=== PATIENT | male | born 1955 | race Caucasian/White ===

== ENCOUNTER → 2017-08-25 | Day surgery (SDC) | payer OTHER ==
[~2017-08-25] VITALS: Ht 170.2 cm; Wt 75.0 kg
[~2017-08-25] MED LIST: ACETAMINOPHEN 325 MG TAB PO PRN; ASPCH81X PO; ATROPINE SULFATE 0.1 MG/ML 5ML SYR IV PRN; COEN150C PO; FENTANYL CITRATE INJ 50 MCG/1 ML 2 ML VIAL ONE; FLUO0.0566 TOP; HEPARIN SOD (PORCINE) 1000 UNIT/ML 10 ML VIAL ONE; MAGN400T6 PO; METO25TA3 PO; MIDAZOLAM HCL 1 MG/ML 2ML VIAL ONE; MULT-506 PO; NITROGLYCERIN 0.4 MG SL PER TAB CHARGE SL PRN; NITROGLYCERIN/D5W 100MCG/ML 20ML SYR ONE; NRV5 PO; NTRSLP4 SL; NYSTCRE11 TOP; NiCARDipine HCL INJ 2.5 MG/ML 10 ML AMP ONE; ROSU5TAB PO; SODIUM CHLORIDE 0.9% 1000ML 1,000 ML IV SCH; SODIUM CHLORIDE 0.9% 1000ML 250 ML IV PRN; TRMCR515 TOP
[2017-08-25 07:08] VITALS: BP 138/80; PULSE 61; TEMP 36.4; O2SAT 96; Ht 170.2 cm; Wt 75.0 kg
--- NOTE | 2017-08-25 08:04 | History & Physical Bridge Note ---
H&P Re-Evaluation Bridge Note: I have examined the patient, reviewed the History & Physical and in the interval since the performance of the History & Physical I have noted the following changes of clinical significance: No changes noted
--- NOTE | 2017-08-25 08:06 | Pre Sedation Assessment ---
Pre Sedation Assessment General Date of Sedation: Aug 25, 2017. Vital Signs Past 12 Hours Date Time Temp Pulse Resp B/P (MAP) Pulse Ox O2 Delivery O2 Flow Rate FiO2 08/25/17 07:08 36.4 61 16 138/80 (99) 96 Room Air Review Cardiovascular: regular rate, rhythm Lungs: lungs clear, normal breath sounds Pre-Sedation Airway Assessment Smoking Status: Former Smoker Hx of Sleep Apnea: No Short Thick Neck: Yes Thyro-mental Distance: < or =3 Finger Breadths Oral Cavity: WNL Mallampati Classification: Class II ASA Classification: Class II NPO Status Date of Last Intake of Fluids: Aug 24, 2017 Time of Last Intake of Fluids: 1999 Date of Last Intake of Solids: Aug 24, 2017 Time of Last Intake of Solids: 1999 Procedure Planning Contraindications for Sedation: None Current Medications Reviewed: Yes Notes The planned sedation has been discussed with the patient. Informed Consent was obtained. I have identified the patient, determined the appropriateness of sedation and have assessed the patient immediately prior to the procedure. All medicine(s) and interventions are by my order.
--- NOTE | 2017-08-25 09:18 | [facility] Post Operative Brief Note ---
Preliminary Procedure Note Procedure Date Aug 25, 2017. Pre-Procedure Diagnosis Positive Stress Test AUC Score 7 Post-Procedure Diagnosis Mild CAD Procedure(s) Performed Coronary Angiography Housekeeping Cleaner Dr. Hawk Henderson Horticultural Farmworker(s) Chelsea Smith Estimated Blood Loss <15cc Medication(s) Fentanyl (12.5 mcg IV), Heparin (5000u IV), Versed (1mg IV), Lidocaine 1% ( local infiltration) Preliminary Findings Right dominant coronary anatomy LM normal LAD Type I, small in caliber with modest caliber D1, bifurcation in mid vessel. D1 60%, LAD 50% mid vessel LCX Very large OM which reaches apex, 40% mid RCA Very Large dominant with mild irregularities Recommendations Medical therapy and/or Counseling Specimens None Fluids (cc crystalloids) 73 Anesthesia Start 0813 End 0850 Marcos Tinoco RN Procedural Complication(s) None Disposition [employer] Coxswain Holding/Recovery
--- NOTE | 2017-08-25 09:44 | Cardiac Catheterization ---
Procedure Note Procedure Date Aug 25, 2017. Pre-Procedure Diagnosis Angina, Positive Stress Test AUC Score 7 Post-Procedure Diagnosis Moderate CAD Procedure(s) Performed Coronary Angiography Rehab Assistant Dr. Hawk Henderson Management Scientist(s) Chelsea Smith Estimated Blood Loss <15cc Medication(s) Fentanyl (12.5 mcg IV), Heparin (5000u IV), Nicardipine (Nicardipine 250 mcg intraarterial after sheath insertion), Versed (1mg IV), Lidocaine 1% (local infiltration) Summary of Findings Right dominant coronary anatomy LM normal with upward takeoff LAD Type I, small in caliber with modest caliber D1, bifurcation in mid vessel. D1 60%, LAD 50% mid vessel prior to bifurcation. LAD does not reach the apex LCX Very large OM which reaches apex, 40% mid RCA Very large dominant with mild irregularities in mid vessel. 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 Holding/Recovery ACC Data Cardiac Status Clinical evaluation leading to the procedure CAD Presntation: Stable angina, Positive Stress Test Heart Failure: No Cardiogenic Shock w/in 24Hrs: No Cardiac Arrest w/in 24Hrs: No Imaging studies past 6 months: Yes Stress studies past 6 months: Yes Stress Echocardiogram: Yes - Positive Coronary Anatomy Dominant: Right Left Main (% Stenosis): Normal LAD (% Stenosis): Mid (50) D1 (% Stenosis): Proximal (60) Circumflex (% Stenosis): Normal OM1 (% Stenosis): Mid (40) RCA (% Stenosis): Mid (mild irregularities) Diagnostic Physician's Name: Hawk Henderson M.D. Status: Elective Closure Device Percutaneous Entry Location: Radial Closure Device: Radial Band Recommendations: Medical therapy and/or Counseling
--- NOTE | 2017-08-25 09:56 | Discharge Instructions ---
Discharge Instructions Procedure Procedure Date: Aug 25, 2017. Reason for Visit: Abnormal Stress Test Dr Henderson To Do. Discharge Discharge Date: Aug 25, 2017. Discharge Diagnosis: Moderate coronary atherosclerosis Last Recorded Wt (Kilograms): 75 Anesthesia Post Anesthesia Instructions: If you have had General Anesthesia or IV Sedation: * Do not drive today. * Resume driving when surgeon permits. * Do not make important decisions or sign legal documents today. * Call surgeon for: 1. Temperature elevations greater than 101 degrees F. 2. Uncontrollable pain. 3. Excessive bleeding. 4. Persistent nausea and vomiting. 5. Medication intolerance (nausea, vomiting or rash). * For nausea and vomiting use only clear liquids such as: tea, soda, bouillon until nausea subsides, then gradually increase diet as tolerated. * If you have any concerns or questions, call your surgeon's office. If physician is unavailable and it is an emergency, call 911 or go to the nearest emergency room. Instructions Activity Recommendations: limitations as noted below Recommended Home Diet: resume previous diet Allergies: Coded Allergies: No Known Allergies (Verified , 06/01/16) Provider Instructions ACTIVITY RECOMMENDATIONS: Excess manipulation of the wrist should be avoided for the next 24-48 hours. * No lifting over 2 pounds (approximately a 1/2 gallon of milk) with the utilized arm for 24 hours. * No strenuous activity such as bowling or tennis for 3 days. * Keep the site of the procedure covered with a bandage for 24 hours. *You may shower the day after the procedure. Do not take a tub bath or submerge the puncture site in water for the next 3 days. *Do not operate any motorized equipment for 3 days. SPECIAL CARE INSTRUCTIONS: The site may be slightly bruised and sore following your procedure. Should any of the following occur, contact the Dr. who performed your procedure. 1. Redness/inflammation, swelling, chills, or fever, or colored drainage at procedure site within 3-7 days after your procedure. 2. Coldness, discoloration, ongoing numbness, severe pain, or swelling. Expect mild tingling of hand and tenderness at the puncture site for up to three days. If this persists beyond three days, or other symptoms develop, notify the DrJoseluis who performed your procedure. BLEEDING: If the procedure site on your wrist begins to bleed, do not panic 1. Place 1 or 2 fingers firmly just slightly above the insertion site to stop the bleeding. You may be able to feel your pulse as you hold pressure. 2. Lift your finger after 5 minutes to see if the bleeding has stopped. 3. Once the bleeding has stopped, gently wipe the wrist area clean with a bandage. * If the bleeding from your wrist does not stop after 10 minutes, or if there is a large amount of bleeding or spurting, call 911 (do not drive yourself to the hospital). SKIN IRRITATION: * You may experience some redness and/or swelling in the area where radiation was administered. If any skin irritation occurs, please contact your family physician. FOLLOW UP VISIT: Keep any scheduled doctor appointments. Follow Up Additional Instructions: ACTIVITY RECOMMENDATIONS: Excess manipulation of the wrist should be avoided for the next 24-48 hours. * No lifting over 2 pounds (approximately a 1/2 gallon of milk) with the utilized arm for 24 hours. * No strenuous activity such as bowling or tennis for 3 days. * Keep the site of the procedure covered with a bandage for 24 hours. *You may shower the day after the procedure. Do not take a tub bath or submerge the puncture site in water for the next 3 days. *Do not operate any motorized equipment for 3 days. SPECIAL CARE INSTRUCTIONS: The site may be slightly bruised and sore following your procedure. Should any of the following occur, contact the Dr. who performed your procedure. 1. Redness/inflammation, swelling, chills, or fever, or colored drainage at procedure site within 3-7 days after your procedure. 2. Coldness, discoloration, ongoing numbness, severe pain, or swelling. Expect mild tingling of hand and tenderness at the puncture site for up to three days. If this persists beyond three days, or other symptoms develop, notify the Dr. who performed your procedure. BLEEDING: If the procedure site on your wrist begins to bleed, do not panic 1. Place 1 or 2 fingers firmly just slightly above the insertion site to stop the bleeding. You may be able to feel your pulse as you hold pressure. 2. Lift your finger after 5 minutes to see if the bleeding has stopped. 3. Once the bleeding has stopped, gently wipe the wrist area clean with a bandage. * If the bleeding from your wrist does not stop after 10 minutes, or if there is a large amount of bleeding or spurting, call 911 (do not drive yourself to the hospital). SKIN IRRITATION: * You may experience some redness and/or swelling in the area where radiation was administered. If any skin irritation occurs, please contact your family physician. FOLLOW UP VISIT: Keep any scheduled doctor appointments. Follow-up with: William Mak/ Dr Henderson 's office in next two weeks Jori Melvin Recommendations: Call your doctor if: * Temperature above 101 degrees * Pain not relieved by pain medicine ordered * There is increased drainage or redness from any incision * You have any unanswered questions or concerns. Your Doctors Instructions noted above were prepared by provider Hawk Henderson. Patient Signature Section: Patient Instructions Signature Page Lloyd You Patient (or Guardian) Signature/Date: I have read and understand the instructions given to me by my caregivers. Caregiver/RN/Doctor Signature/Date: The above-named patient and/or guardian has received patient instructions on this date. + Original Patient Signature Page (only) stays with chart. Please make copy for patient.
--- NOTE | 2017-08-25 10:10 | CARDIOLOGY PROGRESS NOTE ---
DATE: 08/25/2017 DATE: 08/25/2017 The patient seen post-cardiac catheterization procedure explained in detail and results. The study demonstrated narrow caliber type 1 LAD with a 50% narrowing of the left anterior descending 60% narrowing of a small diagonal branch. There are mild irregularities of the right coronary artery and left circumflex with 40% narrowing in the mid circumflex obtuse marginal with both the right coronary and left circumflex very large in caliber with a right dominant anatomy. The patient tolerated the procedure well. Post-procedure and during examination the patient was found to have swelling of his lower lip and cheek reflecting an allergic reaction. Contrast allergy will be added to the patient's list. RECOMMENDATIONS: Will intensify medical therapy, opt for more aggressive treatment of lipids, add amlodipine at 2.5 mg. Assess for improvement in exercise tolerance and anginal threshold. Followup will be arranged in the next 2 weeks' time.
[2017-08-25 11:30] VITALS: BP 115/76; PULSE 72; O2SAT 96
== END | disposition home or self-care (01) ==
LOC: C.CATH 06:56
PROVIDERS: ATTEND Internal Medicine Cardiovascular Disease
DX: I25.119 Atherosclerotic heart disease of native coronary artery with unspecified angina pectoris (principal); E11.9 Type 2 diabetes mellitus without complications; E78.5 Hyperlipidemia, unspecified; Z87.891 Personal history of nicotine dependence; Z82.49 Family history of ischemic heart disease and other diseases of the circulatory system; Z79.899 Other long term (current) drug therapy; Z79.82 Long term (current) use of aspirin

== ENCOUNTER 2020-10-28 09:57 | Inpatient (IN) ==
--- NOTE | 2020-10-17 12:35 | PAT Medication Instructions ---
Medication Instructions Date of Service October 17, 2020 Home Medications carvedilol 3.125 mg tablet 3.125 mg PO QAM aspirin [Aspir-81] 81 mg PO QPM multivitamin 1 tab PO 3XWK tamsulosin 0.4 mg PO QAM ASK your surgeon for instructions aspirin [Aspir-81] 81 mg PO QPM DO NOT take the morning of surgery multivitamin 1 tab PO 3XWK Take morning of surgery With a small sip of water, OTHERWISE NOTHING TO EAT OR DRINK AFTER MIDNIGHT: carvedilol 3.125 mg tablet 3.125 mg PO QAM tamsulosin 0.4 mg PO QAM Other Notes If you have any questions please call us at [phone] or [phone] or [phone] or [phone]
--- NOTE | 2020-10-21 09:47 | Anesthesiology Consultation ---
Date of Service October 21, 2020 Assessment & Plan (1) Encounter for pre-operative examination: Chart Review Chart Review: Acceptable Risk for Surgery (pending preop Covid testing ) and Patient seen in Pre Admission Testing - Check [facility]G AM DOS Per [facility] appt on 10/21/20, patient denies any recent travel. No known Covid positive contacts or Covid related symptoms. Pt denies known Covid infection in the past 90 days. Pt had preop Covid testing at [facility] on 10/21/20= results pending. Educated on importance of self quarantining, social distancing and wearing mask in public both for the patient and household contacts. Last seen by PCP 07/09/2020 = seen for routine follow-up. No chest pain or cady rtness of breath. Scheduled for prostate biopsy with urology next month. Type 2 diabetesdiet controlled. Scheduled for prostate biopsy. Dyslipidemiastatin intolerant. Follow-up in 4 months. Teaching & Discussion Pre-Anesthesia Teaching/Discussion Notes: Instructed NPO after midnight before surgery,except medications with 15 cc of water. Medication instructions provided according to the [facility] guidelines. History Surgery Operation Date: 10/28/20 11:20 Proposed Procedures p Robotic Laparoscopic Prostatectomy - Los Quinones MD s Open Closure of Supraumbilical Incision with Mesh - Adonis Barros MD Height/Weight Height: 5 ft 7 in Weight: 70.5 kg Allergies Allergy/AdvReac Type Severity Reaction Status Date / Time Iodinated Contrast Media Allergy Mild MILD Verified 10/15/20 14:18 FACIAL SWELLING cinnamon Allergy rash Verified 10/15/20 14:18 Medications Home Medications Medication Instructions Recorded Confirmed Last Taken carvedilol 3.125 mg tablet 3.125 mg PO QAM tab 09/23/20 10/15/20 Unknown aspirin [Aspir-81] 81 mg PO QPM 10/13/20 10/15/20 Unknown multivitamin 1 tab PO 3XWK 10/13/20 10/15/20 Unknown tamsulosin 0.4 mg PO QAM 10/13/20 10/15/20 Unknown Past Medical History Medical History (Updated 10/21/20 @ 16:52 by Aicha Medley PA-C) Borderline diabetes Stable CAD (coronary artery disease) Moderate nonobstructive per 2017 cath (50% narrowing of LAD, 60% small diagonal, 40% narrowing of Cx obtuse marginal with mild diffuse irregularities all other vasculature)- follows with cardio PRN History of anxiety History of depression HLD (hyperlipidemia) Patient is Zoroastrianism Pt undecided on blood products Prostate cancer dx february 2020 Vasovagal syncope 2016 x 1 episode (03/2016 [facility])- with transient sinus arrest for 3 seconds and 4.5 seconds on the monitor - given IV saline and atropine and returned to baseline (was cleared for hernia surgery later that year with no cardiac contraindications) Exercise / Class Metabolic Activity II 4-5 Yardwork/Stairs/Walk up hill (one flight of stairs - no chest pain or SOB ) Past Family History Family History Father Diabetes Heart disease Mother Cancer Grandfather (Maternal) Cancer Past Surgical History Surgical History (Updated 10/21/20 @ 10:56 by Aicha Medley PA-C) H/O colonoscopy "01/07/2014 hyperplastic & TVA polyps, repeat 3 yrs/COLONOSCOPY FLEXIBLE PROXIMAL DIAGNOSTIC performed by Osmani Adame MD at ENDOS[facility]" H/O eye surgery left eye - as a child History of arthroscopy of right knee History of cardiac catheterization 2016 - [place] - no stents History of inguinal hernia repair, bilateral History of umbilical hernia repair (06/01/16) Open umbilical hernia repair with a 3.4 cm circulardual Atrium mesh. 06/01/16 Dr. Castro Hx of prostate biopsy Status post laparoscopic hernia repair (02/09/99) Laparoscopic repair, right direct inguinal hernia 02/09/99 Dr. 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 No hx of seizures, stroke, VT. No hx of blood clots or blood transfusions Physical Exam Vital Signs VITALS BP 126/76 P 65 TEMP 98.5 SP02 93% RESP 16 Constitutional no acute distress ENMT Mouth: no TMJ clicking Thyromental Distance: < 3.5 Finger Breadths (2.5) Mallampati Class: III Denies loose or missing teeth Neck neck extension not limited Respiratory normal respiratory effort; no respiratory distress Auscultation: lungs clear to auscultation bilaterally; no wheezes Cardiovascular Rate/Rhythm: regular rate and regular rhythm Heart Sounds: no murmur Vessels: no carotid bruit Musculoskeletal Spine: no pain with cervical ROM Extremities: extremities normal to inspection Psychiatric Orientation: alert Testing Laboratory Results 10/21/20 10:31 10/21/20 10:31 Blood Type A Positive 10/21/20 10:31 Antibody Screen NEGATIVE 10/21/20 10:31 10/21/20 Unknown Urine Culture - Preliminary Urine,Clean Catch No growth - Less than 1,000 colonies/mL, Final report to follow. 07/09/20= HGB A1C: 7.8 Electrocardiogram Date: 10/21/20 NSR with sinus arrhythmia at 63bpm. LAFB. Chest X-Ray Date: 10/21/20 Findings: + NAD Echocardiogram Date: 04/09/16 EF: 60-65% LV Function: normal RWMA: + none Other Findings: + LVH (Mild/concentric) Valvular Disease: + no significant valvular disease Stress Test Date: 07/15/17 Type: exercise (ECHO ) Resting EF: 55-59% Resting LV Function: normal Resting RWMA: + none Stress ECHO positive for inducible ischemia. Mid anteroseptum and apical septum hypokinetic on stress imaging. Stress EKG response showed no evidence of ischemia. MPHR 91%. 13 METS achieved. LVEF unchanged with stress. Stress test terminated due to dyspnea. 2/10 nonlimiting left-sided chest discomfort reported near peak exertion. Grade 1 diastolic dysfunction. Mild MR. Mild TR. Cardiac Catheterization Date: 08/25/17 LM = normal LAD =50% stenosis at mid vessel prior to bifurcation. D1 60%. Left circumflex =40% mid RCA = mild irregularities in mid vessel. Recommend medical therapy.
[2020-10-21 11:01] LABS: Basophils # (auto) 0.01 K/uL (0-0.2); Basophils % (auto) 0.2 %; Eosinophils # (auto) 0.13 K/uL (0-0.5); Eosinophils % (auto) 2.4 %; Hemoglobin 15.7 g/dL (14.0-18.0); Immature Granulocytes # (auto) 0.01 K/uL (0.00-0.02); Immature Granulocytes % (auto) 0.2 %; Lymphocytes # (auto) 1.42 K/uL (1.2-3.4); Lymphocytes % (auto) 26.3 %; Mean Corpuscular Hgb Conc 34.1 g/dL (32-36); Mean Corpuscular Volume 93.7 fL (80-100); Mean Platelet Volume 12.3 fL (7.4-10.4); Monocytes % (auto) 11.1 %; Neutrophils # (auto) 3.23 K/uL (1.4-6.5); Neutrophils % (auto) 59.8 %; Platelet Count 180 K/uL (130-400); RDW Coefficient of Variation 13.3 % (11.5-14.5); RDW Standard Deviation 45.6 fL (36.4-46.3); Red Blood Count 4.91 M/uL (4.7-6.1)
--- NOTE | 2020-10-21 11:06 | XRay Report ---
XR chest Pre-admission PA/Lat HISTORY: 65 years-old Male pat preoperative exam. COMPARISON: Bone scan 09/10/2020, chest radiograph 04/09/2016 TECHNIQUE: PA and lateral views of the chest FINDINGS: Cardiomediastinal and hilar silhouettes are within normal limits. No pneumothorax, pleural effusion, airspace consolidation or overt pulmonary edema. Bones of the chest appear grossly intact. IMPRESSION: No acute process. ACT 112: Negative or not required by law. The above report was generated using voice recognition software. It may contain grammatical, syntax o r spelling errors. Electronically signed by: Sridhar Hernandez M.D. 10/21/2020 11:05 AM
[2020-10-21 12:24] LABS: Calcium 9.5 mg/dl (8.5-10.1); Creatinine Clr Calc Pharmacy 78.5 ml/min; Est GFR (Non-African American) 90.6; Potassium 4.1 mmol/L (3.5-5.1)
--- NOTE | 2020-10-21 16:53 | Electrocardiogram Report ---
Test Reason : Blood Pressure : / mmHG Vent. Rate : 063 BPM Atrial Rate : 063 BPM P-R Int : 176 ms QRS Dur : 106 ms QT Int : 392 ms P-R-T Axes : 053 -49 057 degrees QTc Int : 401 ms Normal sinus rhythm with sinus arrhythmia Left anterior fascicular block Abnormal ECG When compared with ECG of 09-APR-2016 03:47, Premature supraventricular complexes are no longer Present Confirmed by Haider Leroy ([id number]) on 10/21/2020 4:52:51 PM Referred By: Los Quinones Confirmed By:Dank Leroy
[~2020-10-28 09:57] MED LIST changes: -ACETAMINOPHEN 325 MG TAB PO PRN; -ASPCH81X PO; -ATROPINE SULFATE 0.1 MG/ML 5ML SYR IV PRN; -COEN150C PO; -FENTANYL CITRATE INJ 50 MCG/1 ML 2 ML VIAL ONE; -FLUO0.0566 TOP; -HEPARIN SOD (PORCINE) 1000 UNIT/ML 10 ML VIAL ONE; +HEPARIN SOD 5,000 UNIT/0.5 ML VIAL SQ SCH; +LR 15ML/HR IV SCH; -MAGN400T6 PO; -METO25TA3 PO; -MIDAZOLAM HCL 1 MG/ML 2ML VIAL ONE; -MULT-506 PO; -NITROGLYCERIN 0.4 MG SL PER TAB CHARGE SL PRN; -NITROGLYCERIN/D5W 100MCG/ML 20ML SYR ONE; -NRV5 PO; -NTRSLP4 SL; -NYSTCRE11 TOP; -NiCARDipine HCL INJ 2.5 MG/ML 10 ML AMP ONE; -ROSU5TAB PO; -SODIUM CHLORIDE 0.9% 1000ML 1,000 ML IV SCH; -SODIUM CHLORIDE 0.9% 1000ML 250 ML IV PRN; -TRMCR515 TOP
[2020-10-28] MEDS ORDERED: HYDROmorphone INJ 1 MG/ML SYRINGE IV PRN (10:29)
[2020-10-28] MEDS ORDERED: fentaNYL citrate 100 MCG/2 ML VIAL IV PRN (10:29)
[2020-10-28] MEDS ORDERED: ATROPINE SULFATE 0.1 MG/ML 10ML SYR IV PRN (10:29)
[2020-10-28] MEDS ORDERED: ONDANSETRON INJ 2 MG/ML 2 ML VIAL IV PRN ×2 (10:29→17:38)
[2020-10-28] MEDS ORDERED: ePHEDrine sulfate 50 MG/ML AMP IV PRN (10:29)
--- NOTE | 2020-10-28 11:58 | History & Physical Bridge Note ---
Date of Service October 28, 2020 History & Physical Bridge Note I have examined the patient, reviewed the History & Physical and in the interval since the performance of the History & Physical I have noted the following changes of clinical significance: no changes noted
[2020-10-28] MEDS ORDERED: BUPIVACAINE 0.5 % 5 MG/1 ML MPF 30ML VIAL ONE (12:12)
[2020-10-28] MEDS ORDERED: EPINEPHrine INJ 1 MG/ML AMP ONE (12:12)
[2020-10-28] MEDS ORDERED: BACITRACIN INJ 50,000 UNIT VIAL ONE (12:13)
[2020-10-28] MEDS ORDERED: ACETAMINOPHEN 1000 MG/100 ML IV IV ONE (12:14)
[2020-10-28] MEDS ORDERED: fentaNYL citrate 100 MCG/2 ML VIAL ONE (12:20)
[2020-10-28] MEDS ORDERED: MIDAZOLAM HCL 1 MG/ML 2ML VIAL ONE (12:20)
--- NOTE | 2020-10-28 13:10 | History & Physical Bridge Note ---
Date of Service October 28, 2020 History & Physical Bridge Note I have examined the patient, reviewed the History & Physical and in the interval since the performance of the History & Physical I have noted the following changes of clinical significance: no changes noted bridge note issue resolved by HIM while I was in another case
[2020-10-28] MEDS ORDERED: BELLADONNA/OPIUM SUPP 60 MG SUPP PR ONE (13:15)
[2020-10-28] MEDS ORDERED: LIDOCAINE HCL 2% 2 ML VIAL/AMP(20MG/ML) INFIL ONE (14:08)
[2020-10-28] MEDS ORDERED: ROCURONIUM BROMIDE 10 MG/ML 5 ML VIAL IV ONE (14:08)
[2020-10-28] MEDS ORDERED: PROPOFOL IV EMULSION 10 MG/ML 20 ML VIAL IV ONE (14:08)
[2020-10-28] MEDS ORDERED: ONDANSETRON INJ 2 MG/ML 2 ML VIAL ONE ×3 (14:08→16:44)
[2020-10-28] MEDS ORDERED: DEXAMETHASONE SOD INJ 4 MG/ML VIAL ONE (14:08)
[2020-10-28] MEDS ORDERED: GLYCOPYRROLATE 0.2 MG/ML VIAL ONE ×2 (14:08→16:43)
[2020-10-28] MEDS ORDERED: HYDROmorphone INJ 2 MG/ML SYR/VIAL ONE (15:02)
[2020-10-28] MEDS ORDERED: NEOSTIGMINE METHYLSULFATE 5 MG/5 ML SYR ONE (16:44)
--- NOTE | 2020-10-28 16:56 | Operative Report ---
PG Post Operative Report Pre & Post Diagnosis Operation Date: 10/28/20 11:30 Pre-Op Diagnosis: Prostate Cancer Post-Op Diagnosis: Prostate Cancer I identified the patient and participated in the time-out.: Yes Procedure Operation Date: 10/28/20 11:30 Actual Procedures p Robotic Assisted Laparoscopic Prostatectomy with Bilateral Pelvic Lymph Node Dissection - Los Quinones MD Surgeon Haider Quinones MD [employer] Manager Chelsea Murguia Estimated Blood Loss 100 Findings Consistent with Post-Op Diagnosis Specimens 1. Periprostatic fat 2. Left pelvic lymph nodes 3. Right pelvic lymph nodes 4. Prostate and seminal vesicles Description of Procedure The patient was identified in the preoperative holding area, appropriate informed consents were reviewed and completed, and he was transported to the operating suite. Subcutaneous heparin was administered in the pre-operative holding area. Upon arrival in the operating suite, he received appropriate antibiotics and general anesthesia. He was positioned in dorsal lithotomy, a B&O suppository was inserted after digital rectal exam, and he was prepped and draped in standard fashion. A Robles catheter was inserted in the sterile field. A Veress needle was passed into the right upper quadrant and insuflation achieved. A 5mm visiport was inserted under visual guidance. Inspection of the abdomen was carried out, and there was no evidence of traumatic entry or injury secondary to the Veress needle. He has had numerous prior hernia repairs, but his abdominal wall was remarkably free of adhesions. Standard port locations were marked, incised, and placed without difficulty To begin the robotic portion of the case, the left lateral aspect of the sigmoid was mobilized off of the left pelvic side wall to allow the pouch of Levon to be appropriately visualized. I then made an incision in the pouch of Levon, overlying the seminal vesicles. Both SVs as well as the ampullae of the vasa were entirely dissected, with the vasa transected 3cm from the prostate. The medial umbilical ligaments were then controlled with bipolar electrocautery just inferior to the umbilicus. Following cauterization, they were divided utilizing monopolar cautery. A peritoneal incision was carried from this location to the medial aspect of the internal inguinal rings bilaterally with care to avoid opening through the ring. This incision was concluded when the vas deferens was reached. Dissection of the bladder and prostate off of the posterior aspect of the pubic arch was completed allowing full visualization of the prostate. This took slightly longer than usual secondary to prior inguinal hernia repairs with mesh. Careful dissection, however, allowed exposure of the entire arch. The only limitations to the dissection occurred near the iliac vessels were I limited dissection to avoid unintentional encroachment upon the vessels. The fat overlying the prostate was removed en bloc and passed off the table as a specimen labeled "periprostatic fat". The endopelvic fascia was cleared during this portion of the procedure, and subsequently opened - first on the right and then the left. The incision through the endopelvic fascia began near the prostate-bladder junction and was carried to the apex with extreme care to preserve all lateral levator musculature as well as the periurethral musculature and sphincter complex. I additionally preserved the puboprostatic ligaments. I then controlled the DVC with a 3-0 V-lock suture in overlapping/figure of 8 fashion. The lymph node dissection was then conducted. External iliac vessels were identified on the pelvic side wall. Given the limits of my initial dissection under the pubic arch, a separate peritoneal incision was required to expose the vessels. I then stripped lymphatic tissue from above the artery, between the artery and the vein, and below the vein - extending the dissection to the obturator nerve. The proximal aspect of the packet was carried towards the bifurcation of the iliac vessels. A combination of monopolar and bipolar cautery were used to assist with control. After completing the dissection on both sides, the packets were collected and passed off of the table as specimens labeled "pelvic lymph nodes". My attention then returned to the prostate, with identification of the bladder neck aided by gentle traction on the Robles catheter and lateral to medial pressure at the presumed level of the bladder neck with the robotic instruments. An anterior cystotomy was made, the Robles balloon deflated and the catheter guided through the incision to allow anterior retraction. I attempted to preserve maximal bladder neck musculature as I circumferentially dissected around the bladder neck. After incision through the posterior aspect of the mucosa, the dissection was carried through detrusor muscle until the bilateral ampullae of the vasa were identified. The previously dissected vasa and SVs were brought through the incision and used to elevated the prostate anteriorly. A posterior plane behind the prostate was then developed - splitting [place] iers's fascia. This dissection was carried as far as possible towards the apex as well as far as possible laterally. An incision in the lateral prostatic fascia was then made bilaterally to facilitate control of the vascular pedicles and preservation of the nerve bundles. A synchroseal device was used to control the pedicle vessels bilaterally. The neurovascular bundles were approached very conservatively in this particularly case. The apical attachments of the prostate were remaining at that stage. The DVC was divided after control with bipolar cautery over the prostate. Continuous inspection from anterior and lateral views allowed me to closely follow the apical contour of the prostate and maximally preserve urethral length and tissue. The prostate was entirely freed at that point, and collected in an EndoCatch bag before being moved out of the field of vision. Hemostasis was confirmed and anastomosis of the bladder and urethra was completed utilizing a double armed V- Lock stitch. A new Robles catheter was inserted and the anastomosis tested with irrigation. There was no evidence of leak. Of note, Dr. Barros was present for for portion of this case as I had asked him to be available to help with potential closure of the abdominal wall given the patient's prior hernia repairs and risk for subsequent hernia. Inspection was conducted given the lack of significant scarring of the abdominal wall and the decision to extract through the lateral port, we did not place any additional mesh onto the abdominal wall. The robot was undocked, the specimen extracted through expansion of the 12mm lateral nurses assistant port. The fascia was closed in 2 layers - internal oblique first, external oblique second. The midline camera port (9mm) was closed with a 0-vicryl in figure of 8 fashion. Monocryl was used to close all other skin incisions. All wounds were dressed with Dermabond. The case was concluded and the patient taken to the PACU in stable condition. Chelsea Murguia assisted from incision to closure. I attest to the content of the Intraoperative Record and any orders documented therein. Any exceptions are noted below.
[2020-10-28 17:09] LABS: Basophils # (auto) 0.02 K/uL (0-0.2); Basophils % (auto) 0.2 %; Eosinophils # (auto) 0.01 K/uL (0-0.5); Eosinophils % (auto) 0.1 %; Hematocrit (blood only) 43.5 % (42-52); Hemoglobin 14.9 g/dL (14.0-18.0); Immature Granulocytes # (auto) 0.02 K/uL (0.00-0.02); Immature Granulocytes % (auto) 0.2 %; Lymphocytes # (auto) 1.14 K/uL (1.2-3.4); Mean Corpuscular Hemoglobin 32.1 pg (25-34); Mean Corpuscular Volume 93.8 fL (80-100); Mean Platelet Volume 11.7 fL (7.4-10.4); Monocytes # (auto) 0.14 K/uL (0.11-0.59); Monocytes % (auto) 1.5 %; Neutrophils # (auto) 8.17 K/uL (1.4-6.5); Platelet Count 159 K/uL (130-400); RDW Coefficient of Variation 13.3 % (11.5-14.5); RDW Standard Deviation 45.8 fL (36.4-46.3); Red Blood Count 4.64 M/uL (4.7-6.1)
--- NOTE | 2020-10-28 17:24 | Anesthesiology Progress Note ---
Date of Service October 28, 2020 Anesthesia Post Procedure Vital Signs Vital Signs: Temp Pulse Pulse Resp BP Pulse Ox 10/28/20 17:10 69 14 155/85 H 94 10/28/20 17:00 81 16 154/84 H 95 10/28/20 16:50 78 12 149/77 H 98 10/28/20 16:40 70 12 140/71 100 10/28/20 16:34 36.1 C L 57 L 11 L 153/82 H 100 10/28/20 10:33 36.5 C 59 L 18 138/78 98 Transfer of Care Handoff Completed per policy Notes Mental Status: alert / awake / arousable Patient Amnestic to Procedure: Yes Nausea / Vomiting: adequately controlled Pain: adequately controlled Airway Patency, RR, SpO2: stable & adequate BP & HR: stable & adequate Hydration State: stable & adequate Anesthetic Complications: no major complications apparent
[2020-10-28 17:26] LABS: BUN Creatinine Ratio 13.7 (10-20); Calcium 8.3 mg/dl (8.5-10.1); Creatinine Clr Calc Pharmacy 71.4 ml/min; Est GFR (African American) 93.6; Est GFR (Non-African American) 80.7; Potassium 4.3 mmol/L (3.5-5.1)
[2020-10-28] MEDS ORDERED: MoRPHine SULFATE 2 MG/ML CARP IV PRN (17:38)
[2020-10-28] MEDS ORDERED: ACETAMINOPHEN 325 MG TAB PO PRN (17:38)
[2020-10-28] MEDS ORDERED: oxyCODONE HCL IR 5 MG TAB (IMMEDIATE RELEASE) PO PRN ×2 (17:38)
[2020-10-28] MEDS ORDERED: MoRPHine SULFATE 4 MG/ML 1 ML CARP\\VIAL IV PRN (17:38)
[2020-10-28] MEDS: LACTATED RINGER'S 1,000 ML IV SCH ×2 (18:01→23:43)
[2020-10-28 18:02] LABS: Mean Corpuscular Hgb Conc 34.3 g/dL (32-36)
[2020-10-28] MEDS ORDERED: ASPIRIN 81 MG ECTAB PO SCH (21:00)
[2020-10-28] MEDS: HEPARIN SOD 5,000 UNIT/0.5 ML VIAL SQ SCH (21:30)
[2020-10-28] MEDS: ceFAZolin 2000MG 2,000 MG/15 ML SYR IV SCH (21:31)
[2020-10-29] MEDS: ceFAZolin 2000MG 2,000 MG/15 ML SYR IV SCH (05:51)
[2020-10-29 07:47] LABS: Basophils # (auto) 0.01 K/uL (0-0.2); Basophils % (auto) 0.1 %; Hematocrit (blood only) 42.2 % (42-52); Hemoglobin 14.2 g/dL (14.0-18.0); Immature Granulocytes # (auto) 0.03 K/uL (0.00-0.02); Immature Granulocytes % (auto) 0.2 %; Lymphocytes # (auto) 1.91 K/uL (1.2-3.4); Lymphocytes % (auto) 14.9 %; Mean Corpuscular Hemoglobin 31.5 pg (25-34); Mean Corpuscular Hgb Conc 33.6 g/dL (32-36); Mean Corpuscular Volume 93.6 fL (80-100); Mean Platelet Volume 12.3 fL (7.4-10.4); Monocytes # (auto) 1.32 K/uL (0.11-0.59); Monocytes % (auto) 10.3 %; Neutrophils # (auto) 9.55 K/uL (1.4-6.5); Neutrophils % (auto) 74.5 %; Platelet Count 186 K/uL (130-400); RDW Coefficient of Variation 13.4 % (11.5-14.5); RDW Standard Deviation 45.9 fL (36.4-46.3); Red Blood Count 4.51 M/uL (4.7-6.1); White Blood Count 12.82 K/uL (4.8-10.8)
[2020-10-29] MEDS ORDERED: carvediloL 3.125 MG TAB PO SCH (08:00)
[2020-10-29 08:04] LABS: BUN Creatinine Ratio 11.3 (10-20); Calcium 9.1 mg/dl (8.5-10.1); Creatinine Clr Calc Pharmacy 81.3 ml/min; Est GFR (African American) 106.5; Est GFR (Non-African American) 91.9
--- NOTE | 2020-10-29 08:25 | Urology Progress Note ---
Date of Service October 29, 2020 Assessment & Plan (1) Prostate cancer: pod # 1 s/p RALP - doing very well - HL IVF - diet - plan for d/c home later today Admission and Anticipated Discharge Date Admission Date: October 28, 2020 Subjective Doing great ambulatory pain controlled asking for a diet anxious to go home Physical Exam Physical Exam: incisions appropriate urine clear abd soft Results & Data ([facility]) Vital Signs (Past 12 Hours) Vital Signs Temp Pulse Resp BP Pulse Ox 10/29/20 07:30 37.0 C 65 16 129/73 97 10/29/20 02:12 37.1 C 62 16 130/70 94 10/28/20 22:26 37.1 C 77 16 118/74 92 PG Care Time/CCT Total # of Minutes Spent Total Time Spent with Patient: Total time spent is greater than 50% in coordination of care (as documented) at patient's floor/unit and/or counseling patient: Coding Level of Care Code 00033 Subseq Hosp Care Lvl 2 Diagnoses Prostate cancer C61
[2020-10-29] MEDS ORDERED: MULTIVITAMIN TAB PO SCH (09:00)
[2020-10-29] MEDS: HEPARIN SOD 5,000 UNIT/0.5 ML VIAL SQ SCH (09:05)
--- NOTE | 2020-10-29 16:12 | Discharge Summary ---
Date of Service October 29, 2020 Admission HPI Per Admitting Provider Patient admitted status post Robotic Assisted Laparoscopic Prostatectomy with Bilateral Pelvic Lymph Node Dissection for prostate cancer. Admission Exam Per Admitting Provider Constitutional: well developed and well nourished Neck: neck nontender Respiratory: normal respiratory effort; no respiratory distress and does not use accessory muscles Cardiovascular: Rate/Rhythm: regular rate Vessels: radial pulses present Extremities: no edema Gastrointestinal (Abdomen): Inspection/Auscultation: abdomen normal to inspection Percussion/Palpation: abdomen soft; abdomen nontender and no guarding Musculoskeletal: Head/Neck/Chest: normocephalic and head atraumatic Extremities: extremities normal to inspection Skin: no rashes and no lesions Trauma: no evidence of skin trauma Neurologic: awake; not obtunded Speech / Cognition: normal speech Motor/Sensory: no tremor Psychiatric: Orientation: alert and oriented x 3 Genitourinary: no CVA tenderness Lymphatic: no lymphadenopathy Principal Diagnosis Prostate Cancer Discharge Exam Constitutional well developed and well nourished; no acute distress and not ill appearing Respiratory normal respiratory effort and able to speak in complete sentences Cardiovascular Extremities: no calf tenderness Gastrointestinal (Abdomen) Inspection/Auscultation: abdomen normal to inspection; abdomen not distended Musculoskeletal Head/Neck/Chest: normocephalic Skin no rashes, warm and dry Neurologic moves all extremities and awake; not confused Psychiatric A+Ox3, euthymic affect Genitourinary kwon catheter intact Discharge Data Allergies Allergy/AdvReac Type Severity Reaction Status Date / Time Iodinated Contrast Media Allergy Mild MILD Verified 10/28/20 10:28 FACIAL SWELLING cinnamon Allergy rash Verified 10/28/20 10:28 Procedures Performed Operation Date: 10/28/20 11:30 Actual Procedures p Robotic Assisted Laparoscopic Prostatectomy with Bilateral Pelvic Lymph Node Dissection - Los Quinones MD Hospital Course (1) Prostate cancer: Patient admitted status post Robotic Assisted Laparoscopic Prostatectomy with Bilateral Pelvic Lymph Node Dissection on 10/[address] Quinones. No complications post procedure. He was seen POD#1, feeling well, clinically progressing. Vital signs and post-op labs appropriate and as expected. Pain controlled, tolerating advanced diet, ambulating without dizziness. Discharged home in stable condition POD#1, home with kwon catheter. Total Time Total Time Spent Total Time Spent (In Minutes): 15 Total Time Includes: Examination of the Patient, Discharge Planning, Medication Reconciliation, Communication With Other Providers and Other Discharge Plan Discharge Items Patient Disposition: Home - Self-Care Reason For Visit: Prostate Cancer Discharge Diagnosis: Prostate Cancer Activity: Per Instructions section Lifting: No more than 25 pounds Bathing Comment: OK to shower 1 day after discharge. No tub baths or soaks. Sexual Activity: Wait until after follow-up appointment Exercise/Sports: Wait until after follow-up appointment Driving/Machine Use: Do not drive if taking prescription pain medication. Non-emergency contact: Surgeon and Urologist Call non-emergency contact if: your pain is not controlled, your pain is worsening, you have a fever, your temperature is above 101, your wound has increased redness, your wound has increased drainage and your wound pain has increased Follow-up/Referrals: Los Quinones MD [Physician] - 11/10/20 9:00 am Adonis Barros MD [Surgeon] - (Please call to schedule follow up in clinic within 1 week) Leon Hamm DO [Primary Care Provider] - Urology,Nurse [FAKE FOR SCHEDULES] - 11/03/20 10:00 am (Voiding trial with nursing) Diet: Regular Addtl Attending Provider Instructions: Please take all medications as prescribed and keep all follow-ups as scheduled. Please call our office at [phone] with any questions, concerns or need to reschedule appointments for any reason. We are happy to assist you We have sent an antibiotic to your pharmacy of choice. Please begin antibiotic as prescribed the day BEFORE your scheduled voiding trial at [facility]. Please continue antibiotic every 12 hours through the day AFTER your voiding trial. Activity: We recommend having someone with you for the first few days after surgery to help care for you. For the first 2 weeks after surgery, we would like you to get up and walk around your house. However, we recommend limit physical activity that would increase your heart rate. This will allow your body to rest and heal. Take naps if you feel tired. Don't lift anything heavier than 10 pounds, mow the law or ride a bicycle until your follow-up appointment. Please avoid long car rides. Home Care: Unless directed otherwise, drink 6 to 8 glasses of water a day (enough to keep your urine light colored). This will also help keep a healthy flow of urine. We recommend using a stool softener for the first two weeks to avoid constipation. Kwon Catheter or Suprapubic Catheter care: Keep the catheter well secured with either a leg back or leg strap with large bag. Empty your bag when it's about half full. You may notice some blood in the bag. This is normal after surgery and while the catheter is in place. Use mild soap (such as Dove or Dial) and water to wash the catheter and the head of your penis daily, or more frequently if needed. Return to your normal diet, we encourage good protein intake to promote healing. You may shower as normal. Please avoid tub baths or soaking until catheter removed and incisions well healed. Wearing sweat pants while you have the catheter is recommended, they will be more comfortable. Follow-up Your follow up appointments for having your catheter removed, and follow up with your physician should already be scheduled. If you have any questions regarding this, please contact our office. Your final pathology report will be discussed at your physician follow-up appointment. Call [facility] at [phone] right away if you have any of the following: Chest pain or trouble breathing (call 911 or go to the hospital) Fever of 101F or higher, uncontrolled vomiting Heavy bleeding, clots, or bright red blood from the catheter Catheter that falls out or stops draining Foul-smelling discharge from your catheter Redness, swelling, warmth, or increased pain at your incision site Drainage, pus, or bleeding from your incision Pending Studies at Discharge: Yes Stand-Alone Forms: My [facility], Opioid Pain Management, Smoking Cessation Medications and DC Order Prescriptions: New ciprofloxacin HCl 500 mg tablet 500 mg PO BID 3 Days Qty: 6 RF: 0 docusate sodium [Colace] 100 mg capsule 100 mg PO BID Qty: 60 RF: 0 oxycodone-acetaminophen [Percocet] 5-325 mg tablet 1 tab PO Q8H PRN (Reason: pain) Qty: 14 RF: 0 Continued carvedilol 3.125 mg tablet 3.125 mg PO QAM RF: 0 multivitamin Tablet 1 tab PO 3XWK RF: 0 aspirin 81 mg Tablet,Delayed Release (Dr/Ec) 81 mg PO QPM RF: 0 Discontinued tamsulosin 0.4 mg capsule 0.4 mg PO QAM RF: 0 Discharge Orders: Discharge Order (Routine); Ordered 10/29/20 Ordered By: Chelsea Murguia Admission Data Admit Date/Time: 10/28/20 16:40 Attending Provider: Los Quinones Admit Provider: Los Quinones Primary Care Provider: Leon Hamm Other Interventions: Discharge Summary Assessment (RN) Last Done: 10/29/20 14:58 Coding Level of Care Code D/C Day Management <30 mins Diagnoses Prostate cancer C61
== END 2020-10-29 15:55 | disposition home or self-care (01) | DRG 708 ==
LOC: ASU 09:57 → 3N 16:40

== ENCOUNTER 2021-10-21 00:24 | Observation (INO) ==
[2021-10-21 00:45] LABS: Basophils # (auto) 0.03 K/uL (0-0.2); Basophils % (auto) 0.4 %; Eosinophils # (auto) 0.32 K/uL (0-0.5); Eosinophils % (auto) 3.9 %; Hematocrit (blood only) 44.3 % (42-52); Hemoglobin 14.9 g/dL (14.0-18.0); Immature Granulocytes # (auto) 0.02 K/uL (0.00-0.02); Immature Granulocytes % (auto) 0.2 %; Lymphocytes # (auto) 3.16 K/uL (1.2-3.4); Lymphocytes % (auto) 38.7 %; Mean Corpuscular Hgb Conc 33.6 g/dL (32-36); Mean Corpuscular Volume 95.1 fL (80-100); Mean Platelet Volume 12.3 fL (7.4-10.4); Monocytes # (auto) 0.82 K/uL (0.11-0.59); Neutrophils # (auto) 3.81 K/uL (1.4-6.5); Neutrophils % (auto) 46.8 %; Platelet Count 177 K/uL (130-400); RDW Coefficient of Variation 13.3 % (11.5-14.5); RDW Standard Deviation 45.6 fL (36.4-46.3); Red Blood Count 4.66 M/uL (4.7-6.1); White Blood Count 8.16 K/uL (4.8-10.8)
--- NOTE | 2021-10-21 00:50 | Emergency Department Note ---
Impression & Plan Chest pain, Abnormal EKG ED Provider Note NAME: YUMI PERDUE AGE: 66 SEX: M : 1955 ARRIVES VIA: Ambulance INFORMANT: Patient, ED PROVIDER(S): Osmani Cruz DO CHIEF COMPLAINT: Chest pain HPI: The patient is a 66-year-old male who presented to the emergency department for an evaluation of chest pain. The patient describes anterior chest pain. He describes as a pressure. The patient states he also notices worsening pain with exertion. He notices the pain does relieve with rest. He has had ongoing symptoms for the last few weeks. The patient does have a history of coronary artery disease. He is never had any stenting but at one time he had a cardiac catheterization which revealed some cardiac abnormalities. He does have nitroglycerin at home. He took his own nitroglycerin at home with some relief o f his symptoms. He noticed that at 1030 this evening he was having pain that was not resolving. For this reason he presented to the emergency department via ambulance. He was given 4 baby aspirin prior to arrival. At this time he has no pain. He denies having any difficulty breathing. He denies have any lower extremity swelling. He recently underwent a work-up because he is being followed for a history of prostate cancer. The patient denies having any abdominal pain. The the patient's significant other presented to the emergency department to be with him. ROS: See above HPI for pertinent positives & negatives. A total of 10 systems reviewed and were otherwise negative. PAST MEDICAL HISTORY: See Below PAST SURGICAL HISTORY: See Below FAMILY HISTORY: See Below SOCIAL HISTORY: See Below HOME MEDICATIONS: See Below ALLERGIES: See Below VITALS: See Below PHYSICAL EXAMINATION: GENERAL: Patient is awake alert in no acute distress patient is resting comfo rtably and showing no signs of anxiety EYES: The conjunctivae are clear. The pupils are round and reactive. EARS, NOSE, MOUTH AND THROAT: The nose is without any evidence of any deformity. NECK: The neck is nontender and supple. RESPIRATORY: Normal respiratory effort is noted there is no evidence of wheezing rhonchi or rales CARDIOVASCULAR: Regular rate and rhythm noted there no murmurs rubs or gallops normal S1 normal S2. GASTROINTESTINAL: The abdomen is soft. Abdomen is nontender. MUSCULOSKELETAL/EXTREMITIES: There is no evidence of gross deformity full range of motion is noted in the hips and shoulders. SKIN: There is no obvious evidence of any rash. There are no petechiae, pallor or cyanosis noted. NEUROLOGIC: Patient is awake alert and oriented x3 MEDICAL DECISION MAKING: The patient is a 66-year-old male who presented to the emergency department for an evaluation of chest pain. The patient has been experiencing exertional chest pain over the last few weeks. He does not have a history of having coronary artery stenting but does have a history of coronary artery disease. He has nitroglycerin at home which she did take and experience good resolution of his symptoms. I discussed the patient's laboratory and radiographic studies with him. He was treated with aspirin prior to arrival. I discussed the limitations of the emergency department work-up for chest pain with him. Given his EKG findings I do feel the patient would be a better candidate for inpatient management. For this reason I discussed this case with the on-call [facility] hospitalist. They have agreed to evaluate the patient in the emergency department for further management and disposition. Triage Nursing notes reviewed. Prior medical records reviewed Vital Signs: reviewed and remarkable for elevated blood pressure. Differential diagnosis: Cardiac ischemia, aortic dissection, pulmonary embolism, pneumothorax, pneumonia, pericarditis, myocarditis, esophageal rupture, GERD, cholecystitis, pancreatitis, musculoskeletal, as well as other pathologies. ER treatment provided: See below Diagnostics interpreted by me: ECG: EKG was obtained in the emergency department. My interpretation is normal sinus rhythm at 67 bpm. There is no ectopy. High lateral T wave inversions were noted. Anterior T wave inversions were also noted. This was compared to a tracing from October 212020. The T wave abnormalities are new compared to the previous tracing. A second EKG was obtained in the emergency department after the patient d eveloped slight pain. My interpretation is normal sinus rhythm at 69 bpm. There was no ectopy. Continued ST and T wave abnormalities were noted in the high lateral and anterior leads. There is no change from the earlier tracing. Cardiac Monitoring: An order was placed for continuous cardiac monitoring. The monitor shows a rate of 69 bpm with sinus rhythm. Laboratory studies: As stated above and show below. Imaging studies: See below Consultation(s): I discussed this case with Dr. Kessler who is on-call for the [facility] group. Past Med/Surg History Medical History Benign prostatic hyperplasia (BPH) with straining on urination Borderline diabetes Stable CAD (coronary artery disease) Moderate nonobstructive per 2017 cath (50% narrowing of LAD, 60% small diagonal, 40% narrowing of Cx obtuse marginal with mild diffuse irregularities all other vasculature)- follows with cardio PRN Elevated PSA History of anxiety History of depression HLD (hyperlipidemia) Patient is Jew Pt undecided on blood products Prostate cancer dx february 2020 Vasovagal syncope 2016 x 1 episode (03/2016 [place] [facility])- with transient sinus arrest for 3 seconds and 4.5 seconds on the monitor - given IV saline and atropine and returned to baseline (was cleared for hernia surgery later that year with no cardiac contraindications) Surgical History H/O colonoscopy "01/07/2014 hyperplastic & TVA polyps, repeat 3 yrs/COLONOSCOPY FLEXIBLE PROXIMAL DIAGNOSTIC performed by Osmani Adame MD at [facility]" H/O eye surgery left eye - as a child History of arthroscopy of right knee History of cardiac catheterization 2017 - [place] - no stents History of inguinal hernia repair, bilateral History of umbilical hernia repair (06/01/16) Open umbilical hernia repair with a 3.4 cm circulardual Atrium mesh. 06/01/16 Dr. Castro Hx of prostate biopsy Status post laparoscopic hernia repair (02/09/99) Laparoscopic repair, right direct inguinal hernia 02/09/99 Dr. 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 Beliefs That Will Affect Care: None and Rastafarian Rastafarian Beliefs: Jew marital status: Current Living Situation: Spouse current occupational status: employed 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; 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, 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 How many Children do You have: 1 Feels Safe at Home: Yes Childhood Exposure to Second-Hand Smoke: Yes caffeine: Yes (coffee and tea 1-2 cups per day) during the past year weight has: decreased > 10 lbs Dental Care, Regularly: Yes Physical Activity Frequency: Does not Exercise Seatbelt Use: always Sunscreen Use: Yes Assistive Devices: Walker Allergies Allergies Allergy/AdvReac Type Severity Reaction Status Date / Time Iodinated Contrast Media Allergy Mild MILD Verified 10/21/21 01:19 FACIAL SWELLING balsam luz Allergy Unknown + test Verified 10/21/21 01:22 result formaldehyde Allergy Unknown + test Verified 10/21/21 01:22 result cinnamon Allergy rash Verified 10/21/21 01:19 annamic aldehyde Allergy Unknown + test Uncoded 10/21/21 01:22 result cocamide LUIS Allergy Unknown + test Uncoded 10/21/21 01:22 result fragrance mix 2 Allergy Unknown + test Uncoded 10/21/21 01:22 result tea tree oil Allergy Unknown + test Uncoded 10/21/21 01:22 result fragrance mix AdvReac Unknown + test Uncoded 10/21/21 01:22 result Home Meds Home Medications Medication Instructions Recorded Confirmed carvedilol 3.125 mg tablet 3.125 mg PO BID tab 09/23/20 10/21/21 aspirin 81 mg tablet,delayed 81 mg PO DAILY 10/13/20 10/21/21 release multivitamin 1 tab PO 3XWK 10/13/20 10/21/21 empagliflozin 10 mg tablet 20 mg PO QAM 10/21/21 10/21/21 lisinopril 2.5 mg tablet 2.5 mg PO DAILY 10/21/21 10/21/21 metformin 500 mg tablet 1,000 mg PO BIDWMEAL 10/21/21 10/21/21 nitroglycerin 0.4 mg sublingual 0.4 mg SUBLINGUAL UD PRN MDD 3 10/21/21 10/21/21 tablet (Nitrostat) doses triamcinolone acetonide 0.1 % 1 applic TOPICAL BID 10/21/21 10/21/21 topical cream Results & Data (ED) Vital Signs Vital Signs - 24 hr 10/21/21 00:27 10/21/21 00:41 Temperature 36.7 C Temperature Source Oral Pulse Rate 69 Respiratory Rate 18 Respiratory Depth Normal Blood Pressure 141/79 H Blood Pressure Mean 99 Pulse Oximetry 96 97 Oxygen Delivery Method Room Air Room Air Sepsis Recent Fever Within 48 Hours No Sepsis New/Unexplained Change in Mental Status N/A Sepsis Action Taken by Nursing No Action Required Home Medications Current Medication List: was personally reviewed by me Laboratory Data Attestation: I reviewed the patient's lab results. Result diagrams: 10/21/21 00:36 10/21/21 00:36 Lab Results 10/21/21 10/21/21 10/21/21 Range/Units 00:36 00:36 00:36 WBC 8.16 (4.8-10.8) K/uL RBC 4.66 L (4.7-6.1) M/uL Hgb 14.9 (14.0-18.0) g/dL Hct 44.3 (42-52) % MCV 95.1 (80-100) fL MCH 32.0 (25-34) pg MCHC 33.6 (32-36) g/dL RDW Std Deviation 45.6 (36.4-46.3) fL RDW Coeff of Calista 13.3 (11.5-14.5) % Plt Count 177 (130-400) K/uL MPV 12.3 H (7.4-10.4) fL Immature Gran % (Auto) 0.2 % Neut % (Auto) 46.8 % Lymph % (Auto) 38.7 % Beauregard % (Auto) 10.0 % Eos % (Auto) 3.9 % Baso % (Auto) 0.4 % Neut # (Auto) 3.81 (1.4-6.5) K/uL Lymph # (Auto) 3.16 (1.2-3.4) K/uL Beauregard # (Auto) 0.82 H (0.11-0.59) K/uL Eos # (Auto) 0.32 (0-0.5) K/uL Baso # (Auto) 0.03 (0-0.2) K/uL Immature Gran # (Auto) 0.02 (0.00-0.02) K/uL PT 9.6 (9.0-12.0) Seconds INR 0.9 (0.9-1.1) APTT 26.7 (21.0-31.0) Seconds PTT Ratio 1.0 Sodium 136 (136-145) mmol/L Potassium (3.5-5.1) mmol/L Chloride 99 (98-107) mmol/L Carbon Dioxide 25 (21-32) mmol/L Anion Gap 12 H (3-11) BUN 23 (6-23) mg/dl Creatinine 0.83 (0.6-1.4) mg/dl Est Cr Clr Drug Dosing 84.1 ml/min Est GFR ( Amer) 107.8 ml/min Est GFR (Non-Af Amer) 93.0 ml/min BUN/Creatinine Ratio 27.7 H (10-20) Glucose 156 H (70-99(Fasting)) mg/dl Calcium 9.5 (8.5-10.1) mg/dl Total Bilirubin 0.3 (0.2-1.0) mg/dl AST (13-39) U/L ALT 16 (7-52) U/L Alkaline Phosphatase 67 (34-104) U/L Troponin I 0.03 (0-0.04) ng/ml Total Protein 7.3 (6.0-8.3) gm/dl Albumin 4.4 (3.4-5.0) gm/dl Globulin 2.9 (2.5-4.0) gm/dl Albumin/Globulin Ratio 1.5 (0.9-2) Lipase 48 (11-82) U/L Imaging Data Attestation: I personally reviewed and interpreted this imaging study as follows: My Impression: 1 view chest x-ray was obtained in the emergency department. My interpretation is no free air, no definite infiltrate, no acute disease. This was compared to a chest x-ray from October 212020. No definite changes were noted. Discharge Plan Visit Data Chief Complaint: Chest Pain Stated Complaint: chest pain ED Provider: Osmani Cruz Discharge Problem: Chest pain, Abnormal EKG Patient Disposition: Being Evaluated by Hospitalist Forms Stand Alone Forms: My [facility] Prescriptions Prescriptions: No Action carvedilol 3.125 mg tablet 3.125 mg PO BID RF: 0 multivitamin Tablet 1 tab PO 3XWK RF: 0 aspirin 81 mg Tablet,Delayed Release (Dr/Ec) 81 mg PO DAILY RF: 0 triamcinolone acetonide 0.1 % cream 1 applic TOPICAL BID RF: 0 metformin 500 mg Tablet 1,000 mg PO BIDWMEAL RF: 0 nitroglycerin [Nitrostat] 0.4 mg Tablet, Sublingual 0.4 mg sublingual UD MDD 3 doses PRN (Reason: Chest Pain) RF: 0 lisinopril 2.5 mg Tablet 2.5 mg PO DAILY RF: 0 empagliflozin 10 mg Tablet 20 mg PO QAM RF: 0 Referrals Referrals: Alejandro Monzon DO [Primary Care Provider] - Discharge Problem: Chest pain Qualifiers: Chest pain type: unspecified Qualified Code(s): R07.9 - Chest pain, unspecified
[2021-10-21 01:00] LABS: INR 0.9 (0.9-1.1); Partial Thromboplastin Time 26.7 Seconds (21.0-31.0); Prothrombin Time 9.6 Seconds (9.0-12.0)
[2021-10-21 01:11] LABS: Troponin I 0.03 ng/ml (0-0.04)
[2021-10-21 01:50] LABS: Albumin Globulin Ratio 1.5 (0.9-2); Albumin Level 4.4 gm/dl (3.4-5.0); BUN Creatinine Ratio 27.7 (10-20); Bilirubin,Total 0.3 mg/dl (0.2-1.0); Calcium 9.5 mg/dl (8.5-10.1); Creatinine Clr Calc Pharmacy 84.1 ml/min; Est GFR (African American) 107.8 ml/min; Globulin 2.9 gm/dl (2.5-4.0); Total Protein 7.3 gm/dl (6.0-8.3)
[2021-10-21] MEDS ORDERED: ONDANSETRON INJ 2 MG/ML 2 ML VIAL IV PRN (03:31)
[2021-10-21] MEDS ORDERED: NITROGLYCERIN SL 0.4 MG/TAB TAB SL PRN ×2 (03:31)
[2021-10-21] MEDS ORDERED: ACETAMINOPHEN 325 MG TAB PO PRN (03:31)
[2021-10-21 03:35] LABS: Potassium 4.2 mmol/L (3.5-5.1)
[2021-10-21] MEDS ORDERED: CARBOHYDRATES FOR HYPOGLYCEMIA PO PRN (04:00)
[2021-10-21] MEDS ORDERED: GLUCOSE 40% GEL 15 GM TUBE PO PRN (04:00)
[2021-10-21] MEDS ORDERED: DEXTROSE 50% 50 ML SYRINGE IV PRN (04:00)
[2021-10-21] MEDS ORDERED: GLUCOSE 10 TABS/TUBE PO PRN (04:00)
[2021-10-21] MEDS ORDERED: GLUCAGON FOR INJ 1 MG VIAL IM PRN (04:00)
--- NOTE | 2021-10-21 04:34 | History and Physical Report ---
DATE OF ADMISSION: 10/21/2021. CHIEF COMPLAINT: Chest pain. HISTORY OF PRESENT ILLNESS: A 66-year-old male with past medical history significant for type 2 diabetes, hyperlipidemia, reflux esophagitis, history of malignant neoplasm of prostate, status post prostatectomy, seems to be currently on Lupron, history of anxiety, presents with chest pain. The patient says he is having this exertional chest pain going on for last 1 week. A couple of days ago when he walked with his , after half a mile, this chest pain came and he had to come back home, but used to get better after rest. Tonight when going to sleep, the chest pain came back and it was all over the chest and was radiating to both arms. It was not subsiding. He took some nitro, but it did not help, when he decided to come to the hospital. Since his prostate cancer diagnosed, his sugar is also going high and he has neuropathy in his extremities, but this seemed different and the pain was about 8/10 in severity. He received 4 aspirins and currently his pain is much better. Resting comfortably and hemodynamically stable. During the episode, he had some nausea and shortness of breath that has resolved now. No headache, no dizziness, no blurred visions, no earache, no runny nose, no sore throat, no cough, no fevers, no abdominal pain. Normal bowel and bladder movements. No swelling in the legs. ALLERGIES: IODINATED CONTRAST, FORMALDEHYDE, CINNAMON, COCAMIDE FRAGRANCE, TEA TREE OIL FRAGRANCE MIX, BALSAM NICOLE PAST MEDICAL HISTORY: As mentioned above. PAST SURGICAL HISTORY: Colonoscopy, strabismus surgery, arthroscopy of the knee, open umbilical hernia repair, inguinal hernia repair, radical prostate removal with nodes. MEDICATIONS: The patient is on aspirin 81 mg p.o. daily, Coreg 3.125 mg p.o. b.i.d., Jardiance 20 mg p.o. a.m., lisinopril 2.5 mg p.o. daily, metformin 1000 mg p.o. b.i.d. with meals, multivitamins 1 tablet p.o. 3 times a week, nitroglycerin 0.4 mg sublingual p.r.n., triamcinolone topical b.i.d. FAMILY HISTORY: Significant for mother had jaw cancer; father had diabetes, heart disorder; sister has thyroid disorder; paternal grandfather has heart disorder; maternal grandfather had cancer. SOCIAL HISTORY: , former smoker, quit in 1989, smoked half pack a day for 3 years. Alcohol, occasional use. No drug use. REVIEW OF SYSTEMS: As per HPI. Rest of review of systems is negative. PHYSICAL EXAMINATION: GENERAL: The patient is of moderate build, not in acute distress. VITAL SIGNS: Temperature 36.7, pulse 65, respiratory rate 18, blood pressure 123/75, oxygen 98% on room air. HEENT: Pupils equal, round and reactive to light. Oral mucosa moist. NECK: No JVD, no neck masses. CARDIOVASCULAR: S1 and S2 heard. Regular rate and rhythm. No murmur, no gallop. RESPIRATORY SYSTEM: Normal AP diameter. No accessory muscle use. No wheezing, no crackles. ABDOMEN: Soft, bowel sounds present, nontender, no distention. CENTRAL NERVOUS SYSTEM: Cranial nerves II-XII grossly intact, nonfocal. EXTREMITIES: No edema, no erythema. Skin: spots of erythematous rashes on extremity and trunk LABORATORY DATA: WBC 8.1, hemoglobin 14.9, hematocrit 44.3, platelets 177. PT 9.6, INR 0.9, APTT 26.7. Sodium 136, potassium pending, chloride 99, bicarbonate 25, BUN 23, creatinine 0.8, serum glucose 156, calcium 9.5, total bilirubin 0.3, AST pending, ALT 16, alkaline phosphatase 67. Troponin I of 0.03, lipase 48. SARS-CoV-2 RNA negative. IMAGING DATA: Chest x-ray, no acute findings. EKG: Normal sinus rhythm at a rate of 69, left axis deviation, nonspecific ST-T abnormalities seen. ASSESSMENT AND PLAN: This is a 66-year-old male who presents with chest pain. 1. Chest pain, on exertion going on for 1 week: Tonight it happened while he was going to sleep, possible questionable unstable angina. His initial workup is negative. Will order serial enzymes, echo, keep him n.p.o., and consult cardiology in the a.m. for further recommendations. The patient also has nonobstructive coronary artery disease with 50% narrowing in the left anterior descending and 60% in the small diagonal and 40% narrowing of circumflex obtuse marginal with mild diffuse irregularities as per the cardiology notes in Epic April 2019. The patient is on aspirin, Coreg, beta opal.Close monitor. 2. History of hyperlipidemia: Currently, the patient does not seem to be on medications. Will follow lipid profile. 3. History of diabetes: Hold his Jardiance and metformin. Placed on insulin sliding scale. Follow the blood sugars. 4. Hypertension: On Coreg and lisinopril. Will monitor the blood pressure. 5. History of prostate cancer, status post prostatectomy: Currently on Lupron shots, follows with urology. 6. Allergic skin rash: Currently on triamcinolone. Follows with allergy/immunology. 7. Deep venous thrombosis prophylaxis: Sequential compression devices for now. DISPOSITION: Closely monitor in the tele floor. Level 1 full code. Expect to discharge home and follow with family doctor. Job ID: [id number] [facility]ITALPope[facility]
[2021-10-21 07:09] LABS: Basophils # (auto) 0.02 K/uL (0-0.2); Basophils % (auto) 0.3 %; Eosinophils # (auto) 0.25 K/uL (0-0.5); Eosinophils % (auto) 3.7 %; Hematocrit (blood only) 43.7 % (42-52); Hemoglobin 14.8 g/dL (14.0-18.0); Immature Granulocytes # (auto) 0.01 K/uL (0.00-0.02); Immature Granulocytes % (auto) 0.1 %; Lymphocytes # (auto) 2.27 K/uL (1.2-3.4); Lymphocytes % (auto) 33.5 %; Mean Corpuscular Hemoglobin 31.8 pg (25-34); Mean Corpuscular Hgb Conc 33.9 g/dL (32-36); Mean Corpuscular Volume 93.8 fL (80-100); Mean Platelet Volume 11.9 fL (7.4-10.4); Monocytes # (auto) 0.43 K/uL (0.11-0.59); Monocytes % (auto) 6.4 %; Neutrophils # (auto) 3.79 K/uL (1.4-6.5); Platelet Count 165 K/uL (130-400); RDW Coefficient of Variation 13.2 % (11.5-14.5); RDW Standard Deviation 45.5 fL (36.4-46.3); Red Blood Count 4.66 M/uL (4.7-6.1); White Blood Count 6.77 K/uL (4.8-10.8)
[2021-10-21 07:31] LABS: Troponin I 0.04 ng/ml (0-0.04)
[2021-10-21] MEDS: INSULIN ASPART PER UNIT SC SCH ×4 (07:35→21:25)
[2021-10-21 07:47] LABS: BUN Creatinine Ratio 32.8 (10-20); Blood Urea Nitrogen 20 mg/dl (6-23); Calcium 9.1 mg/dl (8.5-10.1); Carbon Dioxide 25 mmol/L (21-32); Chloride 103 mmol/L (98-107); Chol HDL Ratio 4.8 (0-5); Cholesterol 264 mg/dl (0-200); Creatinine Clr Calc Pharmacy 114.4 ml/min; Est GFR (African American) 122.3 ml/min; Est GFR (Non-African American) 105.5 ml/min; Glucose 137 mg/dl (70-99(Fasting)); HDL Cholesterol 55 mg/dl; LDL Cholesterol Calculated 186 mg/dl; Triglycerides 117 mg/dl (0-150); VLDL Cholesterol 23 mg/dl (0-30)
--- NOTE | 2021-10-21 08:13 | XRay Report ---
XR chest 1V portable HISTORY: Left-sided Chest Pain COMPARISON: Chest 10/21/2020. FINDINGS: The cardiac silhouette is mildly enlarged. No focal lung consolidations to suggest pneumoni a. No pneumothorax. No pleural effusions. No evidence for pulmonary edema. IMPRESSION: Mild cardiomegaly. Otherwise, no acute process within the chest. ACT 112: Negative or not required by law. Electronically signed by: Lan Corey M.D. 10/21/2021 8:12 AM
[2021-10-21 08:57] LABS: Magnesium 2.1 mg/dl (1.7-2.4)
[2021-10-21] MEDS ORDERED: MULTIVITAMIN TAB PO SCH (09:00)
[2021-10-21] MEDS: ASPIRIN 81 MG ECTAB PO SCH (09:46)
[2021-10-21] MEDS: carvediloL 3.125 MG TAB PO SCH ×2 (09:46→21:24)
[2021-10-21] MEDS: lisinopril 2.5 MG TAB PO SCH (09:46)
[2021-10-21] MEDS: TRIAMCINOLONE ACET 0.1% CR 15 GM TUBE TOP SCH ×2 (09:47→21:24)
[2021-10-21] MEDS ORDERED: methylPREDNISolone 100 MG in SYRINGE 0 ML IV STA (10:12)
[2021-10-21] MEDS ORDERED: methylPREDNISolone 125 MG/2 ML VIAL IV SCH (10:30)
[2021-10-21] MEDS ORDERED: SODIUM CHLORIDE 0.9% 1000ML 1,000 ML IV SCH ×2 (10:30→14:00)
[2021-10-21] MEDS ORDERED: diphenhydrAMINE 50 MG/ML VIAL IV SCH (10:30)
[2021-10-21] MEDS ORDERED: FAMOTIDINE 20MG IV PUSH 20 MG/5 ML SYR IV SCH (10:30)
--- NOTE | 2021-10-21 11:21 | Cardiology Consultation ---
Date of Consultation October 21, 2021 Assessment & Plan (1) Coronary artery disease involving white earth heart with unstable angina pectoris: (2) Contrast media allergy: Risk, benefits, and alternatives to cardiac catheterization with coronary angiography discussed. Patient agreeable to proceed. Prior cardiac catheterization films reviewed. The LAD and diagonal did not appear to be good targets for intervention. Patient willing to consider retrial of statin therapy during hospitalization. Continue aspirin, DALILA inhibitor, and beta-opal therapy. Further recommendations pending result of cardiac catheterization. History of Present Illness Reason for Consultation: Chest pain, CAD Requesting Physician: Dr. Kessler Attending Physician: Ana Morales MD History of Present Illness 66-year-old patient presented emergency department with resting and exertional chest pressure and discomfort. History of moderate nonobstructive coronary disease per cardiac catheterization 2015. At that time exercise stress echo without any positive for anteroapical ischemia with reproduction of anginal symptoms on treadmill. Medical management recommended. History of diabetes and dyslipidemia with relative statin intolerance. Notes symptoms over the past 2-3 weeks. This morning he attempted to walk to the bathroom with reproduction of chest discomfort. Symptoms are relieved with one sublingual nitroglycerin. Notes a significant decline in functional capac ity over the that timeframe. Typically able to exercise on a rowing machine for up to 10 minutes however, recently only able to complete approximately 60 seconds of his workout. Denies any resting discomfort currently. Preliminary review of bedside 2D transthoracic echocardiogram reveals normal wall motion. ECG with new septal and anterior T wave abnormality when compared to previous. Cardiac enzymes are undetectable. Allergies Allergy/AdvReac Type Severity Reaction Status Date / Time Iodinated Contrast Media Allergy Mild MILD Verified 10/21/21 01:19 FACIAL SWELLING balsam luz Allergy Unknown + test Verified 10/21/21 01:22 result formaldehyde Allergy Unknown + test Verified 10/21/21 01:22 result cinnamon Allergy rash Verified 10/21/21 01:19 coconut Allergy Verified 10/22/21 10:37 coconut oil Allergy Verified 10/22/21 10:37 annamic aldehyde Allergy Unknown + test Uncoded 10/21/21 01:22 result cocamide LUIS Allergy Unknown + test Uncoded 10/21/21 01:22 result fragrance mix 2 Allergy Unknown + test Uncoded 10/21/21 01:22 result tea tree oil Allergy Unknown + test Uncoded 10/21/21 01:22 result fragrance mix AdvReac Unknown + test Uncoded 10/21/21 01:22 result Home Medications Medication Instructions Recorded Confirmed Type carvedilol 3.125 mg tablet 3.125 mg PO BID tab 09/23/20 10/21/21 History aspirin 81 mg tablet,delayed 81 mg PO DAILY 10/13/20 10/21/21 History release multivitamin 1 tab PO 3XWK 10/13/20 10/21/21 History empagliflozin 10 mg tablet 20 mg PO QAM 10/21/21 10/21/21 History lisinopril 2.5 mg tablet 2.5 mg PO DAILY 10/21/21 10/21/21 History metformin 500 mg tablet 1,000 mg PO BIDWMEAL 10/21/21 10/21/21 History nitroglycerin 0.4 mg sublingual 0.4 mg SUBLINGUAL UD PRN MDD 3 10/21/21 10/21/21 History tablet (Nitrostat) doses triamcinolone acetonide 0.1 % 1 applic TOPICAL BID 10/21/21 10/21/21 History topical cream Patient History Medical History Benign prostatic hyperplasia (BPH) with straining on urination Borderline diabetes Stable CAD (coronary artery disease) Moderate nonobstructive per 2017 cath (50% narrowing of LAD, 60% small diagonal, 40% narrowing of Cx obtuse marginal with mild diffuse irregularities all other vasculature)- follows with cardio PRN Elevated PSA History of anxiety History of depression HLD (hyperlipidemia) Patient is Yazdanism Pt undecided on blood products Prostate cancer dx february 2020 Vasovagal syncope 2016 x 1 episode (03/2016 [place] [facility])- with transient sinus arrest for 3 seconds and 4.5 seconds on the monitor - given IV saline and atropine and returned to baseline (was cleared for hernia surgery later that year with no cardiac contraindications) Surgical History H/O colonoscopy "01/07/2014 hyperplastic & TVA polyps, repeat 3 yrs/COLONOSCOPY FLEXIBLE PROXIMAL DIAGNOSTIC performed by Osmani Adame MD at [facility]" H/O eye surgery left eye - as a child History of arthroscopy of right knee History of cardiac catheterization 2017 - [place] - no stents History of inguinal hernia repair, bilateral History of umbilical hernia repair (06/01/16) Open umbilical hernia repair with a 3.4 cm circulardual Atrium mesh. 06/01/16 Dr. Castro Hx of prostate biopsy Status post laparoscopic hernia repair (02/09/99) Laparoscopic repair, right direct inguinal hernia 02/09/99 Dr. 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 How many Children do You have: 1 Feels Safe at Home: Yes Childhood Exposure to Second-Hand Smoke: Yes caffeine: Yes (coffee and tea 1-2 cups per day) during the past year weight has: decreased > 10 lbs Dental Care, Regularly: Yes Physical Activity Frequency: Does not Exercise Seatbelt Use: always Sunscreen Use: Yes Assistive Devices: None Review of Systems Review of Systems: All systems reviewed & are unremarkable except as noted in Subjective Physical Exam Constitutional: well nourished; no acute distress and not ill appearing Respiratory: normal respiratory effort; no respiratory distress, no labored breathing, no retractions and does not use accessory muscles Auscultation: lungs clear to auscultation bilaterally; no crackles, no rales, no rhonchi and no wheezes Cardiovascular: Rate/Rhythm: regular rate and regular rhythm Heart Sounds: normal S1 and normal S2; no murmur Vessels: no JVD, no carotid bruit and + radial pulses abnormal Extremities: no edema Gastrointestinal (Abdomen): Inspection/Auscultation: abdomen normal to inspection and normal bowel sounds; abdomen not distended Percussion/Palpation: abdomen soft; abdomen nontender, no guarding and abdomen not rigid Neurologic: CN's II-XI intact bilaterally and moves all extremities; no focal motor deficits Psychiatric: A+Ox3, euthymic affect Results & Data ([facility]) Vital Signs (Past 12 Hours) Vital Signs Temp Pulse Pulse Resp BP BP Pulse Ox 10/21/21 05:05 64 12 124/96 97 10/21/21 04:00 62 18 120/66 97 10/21/21 02:00 65 18 123/75 98 10/21/21 01:33 165/103 H 99 10/21/21 01:01 68 16 109/65 98 10/21/21 00:41 97 10/21/21 00:27 36.7 C 69 18 141/79 H 96 Diagnostic Findings Cardiac catheterization performed 2016 images personally reviewed. The LAD is a small, 1.5 mm vessel which is type I (did not reach the apex). Moderate mid LAD disease and 70% proximal diagonal branch vessel stenosis noted. There was no significant stenosis of the left circumflex or right coronary artery.
--- NOTE | 2021-10-21 11:23 | Pre Anesthesia Assessment ---
Date of Service October 21, 2021 Pre Sedation Assessment Vital Signs Temp Pulse Pulse Resp BP BP Pulse Ox 10/22/21 11:44 36.7 C 68 18 134/84 98 10/22/21 07:55 65 10/22/21 07:53 37.3 C 66 18 124/73 97 10/22/21 03:08 36.3 C L 56 L 16 117/67 97 10/21/21 23:09 36.6 C 80 20 107/69 95 10/21/21 22:20 66 10/21/21 19:59 36.4 C L 67 18 110/68 95 10/21/21 17:42 36.9 C 78 18 138/76 98 10/21/21 16:39 36.8 C 89 18 128/79 98 10/21/21 16:15 36.9 C 78 18 133/79 96 10/21/21 13:30 64 16 138/82 98 10/21/21 13:14 68 16 129/70 98 Cardiovascular RRR, no murmur, no edema + radial pulses present; no JVD and no carotid bruit Respiratory + respiratory effort normal; no respiratory distress + clear to auscultation bilaterally; no crackles, no rales, no rhonchi and no wheezes Pre-Sedation Airway Assessment Smoking Status: Never smoker Hx Sleep Apnea: No Short, Thick Neck: No Thyromental Distance: > or= 3.5 Finger Breadths Oral Cavity: + WNL Mallampati Class: III ASA: ASA3 Procedure Planning Contraindications for Sedation: none Current Medications Reviewed: Yes Notes The planned sedation has been discussed with the patient. Informed Consent was obtained. I have identified the patient, determined the appropriateness of sedation and have assessed the patient immediately prior to the procedure. All medicine(s) and interventions are by my order.
[2021-10-21] MEDS ORDERED: niCARdipine HCL INJ 2.5 MG/ML 10 ML AMP ONE (11:38)
[2021-10-21] MEDS ORDERED: HEPARIN (PORCINE) 1000 UNIT/ML 10 ML (CATH LAB USE ONLY) ONE ×2 (11:38→12:44)
[2021-10-21] MEDS ORDERED: MIDAZOLAM HCL 1 MG/ML 2ML VIAL ONE ×2 (11:38→12:51)
[2021-10-21] MEDS ORDERED: fentaNYL citrate 100 MCG/2 ML VIAL ONE (11:39)
[2021-10-21] MEDS ORDERED: LIDOCAINE 1% LOCAL 20 ML VIAL ONE (11:39)
[2021-10-21] MEDS ORDERED: NITROGLYCERIN/D5W 100MCG/ML 20ML SYR ONE (11:39)
--- NOTE | 2021-10-21 11:53 | Electrocardiogram Report ---
Test Reason : Blood Pressure : / mmHG Vent. Rate : 067 BPM Atrial Rate : 067 BPM P-R Int : 164 ms QRS Dur : 106 ms QT Int : 416 ms P-R-T Axes : 007 -34 097 degrees QTc Int : 439 ms Normal sinus rhythm Left axis deviation Nonspecific ST and T wave abnormality Abnormal ECG When compared with ECG of 21-OCT-2020 10:35, Non-specific change in ST segment in Anterior leads T wave inversion now evident in Anterolateral leads Confirmed by Haider Leroy ([id number]) on 10/21/2021 11:52:48 AM Referred By: REFERRED SELF Confirmed By:Dank Leroy
--- NOTE | 2021-10-21 11:54 | Electrocardiogram Report ---
Test Reason : Blood Pressure : / mmHG Vent. Rate : 069 BPM Atrial Rate : 069 BPM P-R Int : 178 ms QRS Dur : 106 ms QT Int : 414 ms P-R-T Axes : 049 -40 100 degrees QTc Int : 443 ms Normal sinus rhythm Left axis deviation Nonspecific ST and T wave abnormality Abnormal ECG When compared with ECG of 21-OCT-2021 00:30, (unconfirmed) No significant change was found Confirmed by Haider Leroy ([id number]) on 10/21/2021 11:53:54 AM Referred By: REFERRED SELF Confirmed By:Dank Leroy
--- NOTE | 2021-10-21 11:55 | Electrocardiogram Report ---
Test Reason : Blood Pressure : / mmHG Vent. Rate : 064 BPM Atrial Rate : 064 BPM P-R Int : 178 ms QRS Dur : 104 ms QT Int : 436 ms P-R-T Axes : 008 -22 105 degrees QTc Int : 449 ms Normal sinus rhythm Abnormal ECG When compared with ECG of 21-OCT-2021 01:36, (unconfirmed) No significant change was found Confirmed by Haider Leroy ([id number]) on 10/21/2021 11:55:12 AM Referred By: REFERRED SELF Confirmed By:Dank Leroy
--- NOTE | 2021-10-21 12:07 | Hospitalist Progress Note ---
Date of Service October 21, 2021 Assessment & Plan (1) Chest pain: Plan: Present on admission with exertional chest pain CXR showed mild cardiomegaly. Otherwise, no acute process within the chest. cardiology on board S/P cardiac cath done today with Successful PCI of proximal to mid LAD with single drug-eluting stent (2.5 x 26 mm [place]; postdilated with 3.0 NC). Continue dual-antiplatelet therapy with platelet and aspirin for at least 1 year Continue ACEI and metoprolol statin intolerant, but cardiology plan to start on atorvastatin 40mg daily Will need referral to cardiac rehab Continue monitor closely in PCU History of hyperlipidemia: statin Intolerance History of diabetes: Continue to hold his Jardiance and metformin. Will resume metformin after 48hr Continue insulin sliding scale. Follow up BS Hypertension: Continue Coreg and lisinopril. Continue monitor BS History of prostate cancer status post prostatectomy Currently on Lupron shots Will need outpatient follow up with urology. Allergic skin rash: Currently on triamcinolone. Follows with allergy/immunology. Deep venous thrombosis prophylaxis on SCD Admission and Anticipated Discharge Date Admission Date: October 21, 2021 Subjective Pt was seen and examined for follow up of chest pain Lying in bed with no acute distress Pt said that chest pain is improved denies any palpitation, dizziness and SOB Review of Systems Review of Systems: All systems reviewed & are unremarkable except as noted in Subjective Physical Exam Physical Exam: General- No acute distress Head- atraumatic Eyes- PERRL, EOMI, ENT- oropharynx clear Neck- supple, no JVD Lungs- clear to auscultation Heart- regular rhythm; no murmur Abdomen- normal bowel sounds, soft, nontender Extremities- no calf tenderness, no hematoma in right wrist Neuro- alert, oriented x 3; PERRL, EOMI; no facial palsy; no dysarthria Skin- warm & dry Results & Data Results & Data ([facility]) Vital Signs (Past 12 Hours) Vital Signs Temp Pulse Pulse Resp BP BP Pulse Ox 10/21/21 05:05 64 12 124/96 97 10/21/21 04:00 62 18 120/66 97 10/21/21 02:00 65 18 123/75 98 10/21/21 01:33 165/103 H 99 10/21/21 01:01 68 16 109/65 98 10/21/21 00:41 97 10/21/21 00:27 36.7 C 69 18 141/79 H 96 (1) Chest pain Chest pain type: unspecified Qualified Code(s): R07.9 - Chest pain, unspecified
--- NOTE | 2021-10-21 12:44 | Post Anesthesia Assessment ---
Date of Service October 21, 2021 Post Sedation Assessment Vital Signs Temp Pulse Pulse Resp BP BP Pulse Ox 10/22/21 11:44 36.7 C 68 18 134/84 98 10/22/21 07:55 65 10/22/21 07:53 37.3 C 66 18 124/73 97 10/22/21 03:08 36.3 C L 56 L 16 117/67 97 10/21/21 23:09 36.6 C 80 20 107/69 95 10/21/21 22:20 66 10/21/21 19:59 36.4 C L 67 18 110/68 95 10/21/21 17:42 36.9 C 78 18 138/76 98 10/21/21 16:39 36.8 C 89 18 128/79 98 10/21/21 16:15 36.9 C 78 18 133/79 96 10/21/21 13:30 64 16 138/82 98 10/21/21 13:14 68 16 129/70 98 Recovery Score Respiration: Deep Breath/Cough Circulation: +/-20% PreAnes Value Consciousness: Arouseable (by name) Oxygen Saturation: > 92% On Room Air Discharge Sedation Level of Care: Phase I Post Sedation Plan On clinical assessment, the patient appears to have tolerated the sedation without complications. Patient is recovering as anticipated. Patient will continue to be monitored by nursing and may be discharged when sedation discharge criteria are met per below protocol. Upon Completions of procedure up to 15 minutes continue every 5 minute vital signs and the P.A.R. score; then discharge to a Phase I or Fast Track to Phase II per the following guidelines: * Discharge Patient to appropriate Phase II area if PAR is 8 or greater or return to pre- procedure baseline. The post - procedure orders will be as directed. * If PAR score is less than 8 or not return to pre-procedure baseline then patient will follow Phase I monitoring till PAR is reached for Phase II. The Phase I may be done in procedure room or may call to secure a Phase I area. * If naloxone or flumazenil are used for reversal, hold in Phase I for continued monitoring from when last reversal dose was given for a minimum of 60 minutes or longer pending the nurse and/or physician discretion of patient condition before discharge to Phase II. Please call the Sedation Physician to re-evaluate and complete post-note for discharge to Phase II area. Do NOT discharge from procedure sedation or Phase 1 until post- sedation evaluation note is complete by procedure /sedation MD Sedation Discharge Instructions to be given to the patient at discharge to home.
--- NOTE | 2021-10-21 13:01 | Cardiac Catheterization ---
Cardiac Cath Procedure Full Procedure Date October 21, 2021 Pre-Procedure Diagnosis Pre-Procedure Diagnosis: Acute Coronary Syndrome (Unstable Angina) and CAD AUC Score AUC Score: 8 Post-Procedure Diagnosis Post-Procedure Diagnosis: Severe CAD and Normal Intracardiac Pressures Procedure(s) Performed Procedure(s) Performed: Coronary Angiography and Left Heart Cath Supervisor Cigar Making Hand Fred Roa DO Cps Team Lead(s) Doug CIRCUIT BREAKER ASSEMBLER Estimated Blood Loss Estimated Blood Loss: 5cc Medication(s) Medication(s): Fentanyl, Heparin, Lidocaine 1%, Nicardipine, Nitroglycerin and Versed Summary of Findings 90% mid LAD 60% distal LAD Hemodynamics Rest Ao:: 93/53/73 Final Ao: 116/56/81 LV: 117/1/10 Recommendations Recommendations: PCI without planned CABG Radiation Exposure (mGy) 690 Contrast (mls) 50 Fluids (cc crystalloids) Fluids (cc crystalloids): 100 nss Anesthesia Moderate sedation. Start 1212. End 1239. Sedation monitor: Abimael ALY Procedural Complication(s) None Disposition Tax Appraiser for PCI of the LAD. I attest to the content of the Intraoperative Record and any orders documented therein. Any exceptions are noted below. ACC Data: Tax Appraiser Cardiac Status Clinical evaluation leading to the procedure 66-year-old patient with known moderate LAD disease presented emergency department with progressive exertional and resting angina. ECG with anterior ischemic changes. Troponins undetectable. CAD Presenation: Unstable angina Anginal Classification: CCS IV Imaging Studies Past 6 Months: No Stress Studies Past 6 Months: No Coronary Anatomy Dominant: Right Left Main (% Stenosis): Normal LAD (% Stenosis): Proximal (10%) and Mid (90%) D1 (% Stenosis): Normal D2 (% Stenosis): Proximal (70%) D3 (% Stenosis): Normal Circumflex (% Stenosis): Proximal (30%) OM1 (% Stenosis): Normal (small, 1.5mm vessel.) OM2 (% Stenosis): Mid (40%, large vessel which reaches the apex. Small subbranch with a 50% ostial stenosis.) RCA (% Stenosis): Ostial (30%), Proximal (10%) and Distal (20% diffuse) R PDA (% Stenosis): Normal R PL2 (% Stenosis): Proximal (20%) Diagnostic Physicians Name: Fred Roa DO Closure Device Percutaneous Entry Location: Radial Closure Device: Radial Band Recommendations: PCI without planned CABG Intraprocedure Events Significant Disection: No Perforation: No
[2021-10-21] MEDS ORDERED: CLOPIDOGREL BISULFATE 300 MG TAB ONE (13:10)
--- NOTE | 2021-10-21 14:01 | Post Anesthesia Assessment ---
Date of Service October 21, 2021 Post Sedation Assessment Vital Signs Temp Pulse Pulse Resp BP BP Pulse Ox 10/21/21 13:30 64 16 138/82 98 10/21/21 13:14 68 16 129/70 98 10/21/21 08:00 98.4 F 78 18 116/70 96 10/21/21 05:05 64 12 124/96 97 10/21/21 04:00 62 18 120/66 97 10/21/21 02:00 65 18 123/75 98 10/21/21 01:33 165/103 H 99 10/21/21 01:01 68 16 109/65 98 10/21/21 00:41 97 10/21/21 00:27 98.1 F 69 18 141/79 H 96 Recovery Score Activity: Moves 4 extremities Respiration: Deep Breath/Cough Circulation: +/-20% PreAnes Value Consciousness: Fully Awake Oxygen Saturation: > 92% On Room Air Post Anesthesia Score: 10 Discharge Sedation Level of Care: Fast Track Phase II Post Sedation Plan On clinical assessment, the patient appears to have tolerated the sedation without complications. Patient is recovering as anticipated. Patient will continue to be monitored by nursing and may be discharged when sedation discharge criteria are met per below protocol. Upon Completions of procedure up to 15 minutes continue every 5 minute vital signs and the P.A.R. score; then discharge to a Phase I or Fast Track to Phase II per the following guidelines: * Discharge Patient to appropriate Phase II area if PAR is 8 or greater or return to pre- procedure baseline. The post - procedure orders will be as directed. * If PAR score is less than 8 or not return to pre-procedure baseline then patient will follow Phase I monitoring till PAR is reached for Phase II. The Phase I may be done in procedure room or may call to secure a Phase I area. * If naloxone or flumazenil are used for reversal, hold in Phase I for continued monitoring from when last reversal dose was given for a minimum of 60 minutes or longer pending the nurse and/or physician discretion of patient condition before discharge to Phase II. Please call the Sedation Physician to re-evaluate and complete post-note for discharge to Phase II area. Do NOT discharge from procedure sedation or Phase 1 until post- sedation evaluation note is complete by procedure /sedation MD Sedation Discharge Instructions to be given to the patient at discharge to home.
--- NOTE | 2021-10-21 14:10 | Cardiac Catheterization ---
ACC Data: Corporate Aircraft Mechanic Cardiac Status Clinical evaluation leading to the procedure CAD Presenation: Unstable angina Anginal Classification: CCS IV Heart Failure: No Cardiogenic Shock within 24 Hours: No Cardiac Arrest within 24 Hours: No Imaging Studies Past 6 Months: Yes Stress Studies Past 6 Months: No Diagnostic Physicians Name: Haider Coto MD Status: Elective Closure Device Percutaneous Entry Location: Radial Closure Device: Radial Band Recommendations: PCI without planned CABG PCI Indication: Unstable Angina Lesion Segment Name: mid LAD Culprit Artery: Yes Stenosis Prior to Rx (%): 95 Chronic Total Occlusion: No IVUS: No FFR: No Pre-Procedure LIZET Flow: 2 Previously Treated Lesion: No Lesion Complexity: Non-High/Non-C Lesion Length (mm): 23 Thrombus Present: No Bifurcation Lesion: Yes Guidewire Across Lesion: Stenosis Post-Procedure (%): 0 Post-Procedure LIZET Flow: 3 Devices(s) Deployed: Yes Yes Intraprocedure Events Significant Disection: No Perforation: No Cardiac Cath Procedure Full Procedure Date October 21, 2021 Pre-Procedure Diagnosis Pre-Procedure Diagnosis: Acute Coronary Syndrome (Unstable Angina) and CAD AUC Score AUC Score: 8 Post-Procedure Diagnosis Post-Procedure Diagnosis: Severe CAD and Successful PCI Procedure(s) Performed Procedure(s) Performed: Coronary Angiography and Drug Eluting Stent Automotive Refinisher Haider Coto MD Press Setup Operator(s) Doug MONTES Estimated Blood Loss Estimated Blood Loss: 15 Medication(s) Medication(s): Clopidogrel, Fentanyl, Heparin, Nicardipine, Nitroglycerin and Versed Summary of Findings Indication: Unstable angina Access: 6 Fr right radial artery Catheters: EBU 3.5 guide Findings: For full details of patient's coronary angiography please see cath report dictated by Dr. Roa. Briefly, patient found to have 95% mid LAD disease with downstream LIZET II flow. Decision to proceed with PCI. -- PCI -- Antithrombotic therapy: Heparin, clopidogrel Procedure: Left main cannulated with EBU 3.5 guide Whisper wire passed across lesion into distal vessel Mid LAD lesion predilated with 2.0 compliant balloon Dilated lesion stented with 2.5 x 26 mm [place] drug-eluting stent Stent post-dilated with 3.0 noncompliant balloon IC vasodilators administered for spasm Post procedure LIZET 3 flow, stent well expanded with minimal residual stenosis. No branch vessel compromise and no apparent coronary complications. Arterial Closure: TR band Summary: 1. Successful PCI of proximal to mid LAD with single drug-eluting stent (2.5 x 26 mm [place]; postdilated with 3.0 NC). Recommendations: To PCU for continued monitoring Loaded with clopidogrel 600 mg in Corporate Aircraft Mechanic Continue dual-antiplatelet therapy for at least 1 year Consult cardiac Rehab Hemodynamics Rest Ao:: 116/56/81 Final Ao: 124/67/92 LV: -- Recommendations Recommendations: PCI without planned CABG Specimens Specimens: None Radiation Exposure (mGy) 1701 Contrast (mls) 80 Fluids (cc crystalloids) Fluids (cc crystalloids): 100 Anesthesia Moderate sedation. Start 1239. End 1308. Sedation monitor: Abimael ALY Procedural Complication(s) None Disposition PCU I attest to the content of the Intraoperative Record and any orders documented therein. Any exceptions are noted below. [facility] Card Cath Procedure Codes Moderate Sedation Procedure 1: Sedation/Anesthesia: 11076 Mod Sedation by the same physician; Ea [id number] Minutes Stenting Procedure 1: Cardiovascular Stent Procedures: 51808 Perc transcatheter placement of intracoronary stent(s), with ang PG Care Time/CCT Total # of Minutes Spent Total Time Spent with Patient: Total time spent is greater than 50% in coordination of care (as documented) at patient's floor/unit and/or counseling patient:
[2021-10-22 07:10] LABS: BUN Creatinine Ratio 24.7 (10-20); Calcium 9.2 mg/dl (8.5-10.1); Creatinine Clr Calc Pharmacy 95.6 ml/min; Est GFR (African American) 113.6 ml/min; Potassium 3.9 mmol/L (3.5-5.1)
[2021-10-22] MEDS ORDERED: CLOPIDOGREL BISULFATE 75 MG TAB PO SCH (09:00)
[2021-10-22] MEDS: lisinopril 2.5 MG TAB PO SCH (09:48)
[2021-10-22] MEDS: carvediloL 3.125 MG TAB PO SCH (09:48)
[2021-10-22] MEDS: INSULIN ASPART PER UNIT SC SCH ×2 (09:48→12:00)
[2021-10-22] MEDS: ASPIRIN 81 MG ECTAB PO SCH (09:48)
[2021-10-22] MEDS: TRIAMCINOLONE ACET 0.1% CR 15 GM TUBE TOP SCH (09:49)
[2021-10-22] MEDS ORDERED: ATORVASTATIN 40 MG TAB PO SCH (10:00)
--- NOTE | 2021-10-22 12:39 | Cardiology Progress Note ---
Date of Service October 22, 2021 Assessment & Plan (1) Coronary artery disease involving [place] heart with unstable angina pectoris: (2) Status post insertion of drug-eluting stent into left anterior descending (LAD) artery: (3) Contrast media allergy: (4) Dyslipidemia: (5) Statin intolerance: Plan: Cardiac catheterization results reviewed. Discussed importance of continuing dual antiplatelet therapy for a minimum of 6 months post drug-eluting stent implantation. Patient voiced understanding and agreement. Post cardiac catheterization activity restrictions listed below. In regard to patient's dyslipidemia, he is agreeable to retrial of atorvastatin 40 mg daily. Repeat fasting lipid panel and ALT in 6 weeks. Outpatient cardiology follow-up in 1-2 weeks. ACTIVITY RECOMMENDATIONS: It is common to feel weak and fatigue for a few days. * Do not drive or operate any motorized equipment for the next three days. * Limit stair usage (2 or 3 trips a day only) for the next three days. * Do not lift anything heavier than 10 pounds for the next three days. * Do not engage in vigorous exercise or any sports for the next five days. * You may shower the day after your procedure, but do not immerse the area for three days. Cleanse the site gently with soap and water. SPECIAL CARE INSTRUCTIONS: * You may replace the pressure dressing or band-aid the morning after the procedure. * After your procedure, it is normal to have a small bruise or small lump at the site. Examine your site daily for any change in the bruise or lump, redness, swelling, drainage or numbness. Notify your doctor if any change. BLEEDING: * If there is a small amount of bleeding at the site, lie down and apply firm pressure with a clean cloth for ten minutes. When the bleeding stops, lie quietly keeping the procedure limb straight for six hours. Notify your doctor as soon as possible. * If the bleeding does not stop after ten minutes or if there is a large amount of bleeding or spurting, call 911 immediately. Continue to lie down and hold firm pressure until help arrives. SKIN IRRITATION: * You may experience some redness and/or swelling in the area where radiation was administered. If any skin irritation occurs, please contact your family physician. Admission and Anticipated Discharge Date Admission Date: October 21, 2021 Subjective Patient seen and examined at the bedside. Feeling well from a cardiovascular perspective. Chest discomfort reported yesterday 10/21/2021 has resolved. Anx ious for discharge. Tolerating diet and medications. Telemetry reveals sinus rhythm. Review of Systems Review of Systems: All systems reviewed & are unremarkable except as noted in Subjective Physical Exam Constitutional: well nourished; no acute distress and not ill appearing ENMT: Mallampati Class: III Respiratory: normal respiratory effort; no respiratory distress, no labored breathing, no retractions and does not use accessory muscles Auscultation: lungs clear to auscultation bilaterally; no crackles, no rales, no rhonchi and no wheezes Cardiovascular: RRR, no murmur, no edema Rate/Rhythm: regular rate and regular rhythm Heart Sounds: normal S1 and normal S2; no murmur Vessels: radial pulses present (No right anterior wrist ecchymosis or hematoma); no JVD and no carotid bruit Extremities: no edema Gastrointestinal (Abdomen): Inspection/Auscultation: abdomen normal to inspection and normal bowel sounds; abdomen not distended Percussion/Palpation: abdomen soft; abdomen nontender, no guarding and abdomen not rigid Neurologic: CN's II-XI intact bilaterally and moves all extremities; no focal motor deficits Psychiatric: A+Ox3, euthymic affect Results & Data ([facility]) Vital Signs (Past 12 Hours) Vital Signs Temp Pulse Pulse Resp BP Pulse Ox 10/22/21 11:44 36.7 C 68 18 134/84 98 10/22/21 07:55 65 10/22/21 07:53 37.3 C 66 18 124/73 97 10/22/21 03:08 36.3 C L 56 L 16 117/67 97
--- NOTE | 2021-10-22 13:30 | Discharge Summary ---
Date of Service October 22, 2021 Admission HPI Per Admitting Provider CHIEF COMPLAINT: Chest pain. HISTORY OF PRESENT ILLNESS: A 66-year-old male with past medical history significant for type 2 diabetes, hyperlipidemia, reflux esophagitis, history of malignant neoplasm of prostate, status post prostatectomy, seems to be currently on Lupron, history of anxiety, presents with chest pain. The patient says he is having this exertional chest pain going on for last 1 week. A couple of days ago when he walked with his , after half a mile, this chest pain came and he had to come back home, but used to get better after rest. Tonight when going to sleep, the chest pain came back and it was all over the chest and was radiating to both arms. It was not subsiding. He took some nitro, but it did not help, when he decided to come to the hospital. Since his prostate cancer di agnosed, his sugar is also going high and he has neuropathy in his extremities, but this seemed different and the pain was about 8/10 in severity. He received 4 aspirins and currently his pain is much better. Resting comfortably and hemodynamically stable. During the episode, he had some nausea and shortness of breath that has resolved now. No headache, no dizziness, no blurred visions, no earache, no runny nose, no sore throat, no cough, no fevers, no abdominal pain. Normal bowel and bladder movements. No swelling in the legs. Admission Exam Per Admitting Provider GENERAL: The patient is of moderate build, not in acute distress. VITAL SIGNS: Temperature 36.7, pulse 65, respiratory rate 18, blood pressure 123/75, oxygen 98% on room air. HEENT: Pupils equal, round and reactive to light. Oral mucosa moist. NECK: No JVD, no neck masses. CARDIOVASCULAR: S1 and S2 heard. Regular rate and rhythm. No murmur, no gallop. RESPIRATORY SYSTEM: Normal AP diameter. No accessory muscle use. No wheezing, no crackles. ABDOMEN: Soft, bowel sounds present, nontender, no distention. CENTRAL NERVOUS SYSTEM: Cranial nerves II-XII grossly intact, nonfocal. EXTREMITIES: No edema, no erythema. Skin: spots of erythematous rashes on extremity and trunk Principal Diagnosis Chest pain History of hyperlipidemia: History of diabetes: Hypertension: History of prostate cancer Discharge Exam General- No acute distress Head- atraumatic Eyes- PERRL, EOMI, ENT- oropharynx clear Neck- supple, no JVD Lungs- clear to auscultation Heart- regular rhythm; no murmur Abdomen- normal bowel sounds, soft, nontender Extremities- no calf tenderness, no hematoma in right wrist Neuro- alert, oriented x 3; PERRL, EOMI; no facial palsy; no dysarthria Skin- warm & dry Discharge Data Allergies Allergy/AdvReac Type Severity Reaction Status Date / Time Iodinated Contrast Media Allergy Mild MILD Verified 10/21/21 01:19 FACIAL SWELLING balsam luz Allergy Unknown + test Verified 10/21/21 01:22 result formaldehyde Allergy Unknown + test Verified 10/21/21 01:22 result cinnamon Allergy rash Verified 10/21/21 01:19 coconut Allergy Verified 10/22/21 10:37 coconut oil Allergy Verified 10/22/21 10:37 annamic aldehyde Allergy Unknown + test Uncoded 10/21/21 01:22 result cocamide LUIS Allergy Unknown + test Uncoded 10/21/21 01:22 result fragrance mix 2 Allergy Unknown + test Uncoded 10/21/21 01:22 result tea tree oil Allergy Unknown + test Uncoded 10/21/21 01:22 result fragrance mix AdvReac Unknown + test Uncoded 10/21/21 01:22 result Consultations 10/21/21 01:31 ED Decision to Admit Stat 10/21/21 08:00 Consult Cardiology Routine 10/21/21 10:18 Consult Cardiac Catheterization Routine 10/21/21 14:00 Consult Cardiac Rehabilitation Routine Procedures Performed Operation Date: 10/21/21 11:30 Actual Procedures s Cineradiography w/Routine Exam - DO miguel angel St Cath, Left with Cors and Vent - DO miguel angel St Drug Eluting Stent SGl Vessel - [place] MD Cardiac Cath Procedure Full Procedure Date October 21, 2021 Pre-Procedure Diagnosis Pre-Procedure Diagnosis: Acute Coronary Syndrome (Unstable Angina) and CAD AUC Score AUC Score: 8 Post-Procedure Diagnosis Post-Procedure Diagnosis: Severe CAD and Normal Intracardiac Pressures Procedure(s) Performed Procedure(s) Performed: Coronary Angiography and Left Heart Cath [employer] Fred Roa DO [employer]) Doug MONTES Estimated Blood Loss Estimated Blood Loss: 5cc Medication(s) Medication(s): Fentanyl, Heparin, Lidocaine 1%, Nicardipine, Nitroglycerin and Versed Summary of Findings 90% mid LAD 60% distal LAD Hemodynamics Rest Ao:: 93/53/73 Final Ao: 116/56/81 LV: 117/1/10 Recommendations Recommendations: PCI without planned CABG Radiation Exposure (mGy) 690 Contrast (mls) 50 Fluids (cc crystalloids) Fluids (cc crystalloids): 100 nss Anesthesia Moderate sedation. Start 1212. End 1239. Sedation monitor: Abimael ALY Procedural Complication(s) None Disposition [employer] for PCI of the LAD. I attest to the content of the Intraoperative Record and any orders documented therein. Any exceptions are noted ACC Data: [employer] Cardiac Status Clinical evaluation leading to the procedure CAD Presenation: Unstable angina Anginal Classification: CCS IV Heart Failure: No Cardiogenic Shock within 24 Hours: No Cardiac Arrest within 24 Hours: No Imaging Studies Past 6 Months: Yes Stress Studies Past 6 Months: No Diagnostic Physicians Name: Haider Coto MD Status: Elective Closure Device Percutaneous Entry Location: Radial Closure Device: Radial Band Recommendations: PCI without planned CABG PCI Indication: Unstable Angina Lesion Segment Name: mid LAD Culprit Artery: Yes Stenosis Prior to Rx (%): 95 Chronic Total Occlusion: No IVUS: No FFR: No Pre-Procedure LIZET Flow: 2 Previously Treated Lesion: No Lesion Complexity: Non-High/Non-C Lesion Length (mm): 23 Thrombus Present: No Bifurcation Lesion: Yes Guidewire Across Lesion: Stenosis Post-Procedure (%): 0 Post-Procedure LIZET Flow: 3 Devices(s) Deployed: Yes Yes Intraprocedure Events Significant Disection: No Perforation: No Cardiac Cath Procedure Full Procedure Date October 21, 2021 Pre-Procedure Diagnosis Pre-Procedure Diagnosis: Acute Coronary Syndrome (Unstable Angina) and CAD AUC Score AUC Score: 8 Post-Procedure Diagnosis Post-Procedure Diagnosis: Severe CAD and Successful PCI Procedure(s) Performed Procedure(s) Performed: Coronary Angiography and Drug Eluting Stent [employer] Haider Coto MD [employer]) Doug MONTES Estimated Blood Loss Estimated Blood Loss: 15 Medication(s) Medication(s): Clopidogrel, Fentanyl, Heparin, Nicardipine, Nitroglycerin and Versed Summary of Findings Indication: Unstable angina Access: 6 Fr right radial artery Catheters: EBU 3.5 guide Findings: For full details of patient's coronary angiography please see cath report dictated by Dr. Roa. Briefly, patient found to have 95% mid LAD disease with downstream LIZET II flow. Decision to proceed with PCI. -- PCI -- Antithrombotic therapy: Heparin, clopidogrel Procedure: Left main cannulated with EBU 3.5 guide Whisper wire passed across lesion into distal vessel Mid LAD lesion predilated with 2.0 compliant balloon Dilated lesion stented with 2.5 x 26 mm [place] drug-eluting stent Stent post-dilated with 3.0 noncompliant balloon IC vasodilators administered for spasm Post procedure LIZET 3 flow, stent well expanded with minimal residual stenosis. No branch vessel compromise and no apparent coronary complications. Arterial Closure: TR band Summary: 1. Successful PCI of proximal to mid LAD with single drug-eluting stent (2.5 x 26 mm [place]; postdilated with 3.0 NC). Recommendations: To PCU for continued monitoring Loaded with clopidogrel 600 mg in [employer] Continue dual-antiplatelet therapy for at least 1 year Consult cardiac Rehab Hemodynamics Rest Ao:: 116/56/81 Final Ao: 124/67/92 LV: -- Recommendations Recommendations: PCI without planned CABG Specimens Specimens: None Radiation Exposure (mGy) 1701 Contrast (mls) 80 Fluids (cc crystalloids) Fluids (cc crystalloids): 100 Anesthesia Moderate sedation. Start 1239. End 1308. Sedation monitor: Abimael ALY Procedural Complication(s) None Disposition PCU I attest to the content of the Intraoperative Record and any orders documented therein. Any exceptions are noted below. [facility] Card Cath Procedure Codes Moderate Sedation Procedure 1: Sedation/Anesthesia: 54809 Mod Sedation by the same physician; Ea [id number] Minutes Stenting Procedure 1: Cardiovascular Stent Procedures: 80949 Perc transcatheter placement of intracoronary stent(s), with ang PG Care Time/CCT Total # of Minutes Spent Total Time Spent with Patient: Total time spent is greater than 50% in coordination of care (as documented) at patient's floor/unit and/or counseling patient: Ordered Studies 10/21/21 12:04 CL Cath Imgs for PACS use only Routine XR chest 1V portable HISTORY: Left-sided Chest Pain COMPARISON: Chest 10/21/2020. FINDINGS: The cardiac silhouette is mildly enlarged. No focal lung consolidations to suggest pneumonia. No pneumothorax. No pleural effusions. No evidence for pulmonary edema. IMPRESSION: Mild cardiomegaly. Otherwise, no acute process within the chest. ACT 112: Negative or not required by law. Electronically signed by: Lan Corey M.D. 10/21/2021 8:12 AM Dictated:10/21/21805 Transcribed: 10/21/21805 Hospital Course (1) Chest pain: Present on admission with exertional chest pain CXR showed mild cardiomegaly. Otherwise, no acute process within the chest. cardiology on board S/P cardiac cath done today with Successful PCI of proximal to mid LAD with single drug-eluting stent (2.5 x 26 mm [place]; postdilated with 3.0 NC). Continue dual-antiplatelet therapy with platelet and aspirin for at least 1 year Continue ACEI and metoprolol statin intolerant, but cardiology plan to start on atorvastatin 40mg daily Will need referral to cardiac rehab Continue monitor closely in PCU History of hyperlipidemia: statin Intolerance History of diabetes: Continue to hold his Jardiance and metformin. Will resume metformin after 48hr Continue insulin sliding scale. Follow up BS Hypertension: Continue Coreg and lisinopril. Continue monitor BS History of prostate cancer status post prostatectomy Currently on Lupron shots Will need outpatient follow up with urology. Allergic skin rash: Currently on triamcinolone. Follows with allergy/immunology. Deep venous thrombosis prophylaxis on SCD Total Time Total Time Spent Total Time Spent (In Minutes): 35 minutes Discharge Plan Discharge Items Patient Disposition: Home - Self-Care Reason For Visit: chest pain Discharge Diagnosis: Chest pain History of hyperlipidemia: History of diabetes: Hypertension: History of prostate cancer Activity: Resume your previous activity Non-emergency contact: Primary Care Provider and [employer] Call non-emergency contact if: you have any medication questions and your symptoms worsen Follow-up/Referrals: Alejandro Monzon, [Primary Care Provider] - (Date & Time 10/26/2021 9:40 AM Provider BR[facility] Department [facility] ) Diet: Carb Consistent or DM2 and Heart Healthy Addtl Attending Provider Instructions: Follow up with your primary care provider Che NOVOA on 10/26/2021 @ 9:40 AM at the [facility] Follow up with cardiology in 1-2 weeks Follow up with your Urology outpatient Your provider or cardiology will arrange for cardiac rehab Continue dual antiplatelet therapy with aspirin and Plavix for at least 6 months Avoid NSAID such as motrin, aleve, naproxen, ibuprofen, advil while on aspirin palvix Please resume metformin tomorrow due to the contrast received during the cardiac cath It is common to feel weak and fatigue for a few days. * Do not drive or operate any motorized equipment for the next three days. * Limit stair usage (2 or 3 trips a day only) for the next three days. * Do not lift anything heavier than 10 pounds for the next three days. * Do not engage in vigorous exercise or any sports for the next five days. * You may shower the day after your procedure, butdo not immerse the area for three days. Cleanse the site gently with soap and water. SPECIAL CARE INSTRUCTIONS: * You may replace the pressure dressing or band-aid the morning after the procedure. * After your procedure, it is normal to have a small bruise or small lump at the site.Examine your site dailyfor any change in the bruise or lump, redness, swelling, drainage or numbness. Notify your doctor if any change. BLEEDING: * If there is a small amount of bleeding at the site, lie down and apply firm pressure with a clean cloth for ten minutes. When the bleeding stops, lie quietly keeping the procedure limb straight for six hours. Notify your doctor as soon as possible. *If the bleeding does not stop after ten minutes or if there is a large amount of bleeding or spurting, call 911 immediately.Continue to lie down and hold firm pressure until help arrives. SKIN IRRITATION: * You may experience some redness and/or swelling in the area where radiation was administered. If any skin irritation occurs, please contact your family physician. Pending Studies at Discharge: No Stand-Alone Forms: [employer], Smoking Cessation Medications and DC Order Prescriptions: New atorvastatin 40 mg Tablet 40 mg PO QAM 30 Days Qty: 30 RF: 0 clopidogrel 75 mg Tablet 75 mg PO QAM 30 Days Qty: 30 RF: 0 Continued carvedilol 3.125 mg tablet 3.125 mg PO BID RF: 0 multivitamin Tablet 1 tab PO [id number] RF: 0 aspirin 81 mg Tablet,Delayed Release (Dr/Ec) 81 mg PO DAILY RF: 0 triamcinolone acetonide 0.1 % cream 1 applic TOPICAL BID RF: 0 metformin 500 mg Tablet 1,000 mg PO BIDWMEAL RF: 0 nitroglycerin [Nitrostat] 0.4 mg Tablet, Sublingual 0.4 mg sublingual UD MDD 3 doses PRN (Reason: Chest Pain) RF: 0 lisinopril 2.5 mg Tablet 2.5 mg PO DAILY RF: 0 empagliflozin 10 mg Tablet 20 mg PO QAM RF: 0 Discharge Orders: Discharge Order (Routine); Ordered 10/22/21 Ordered By: Ana Guillen/Other Patient Handouts: High Blood Sugar (Hyperglycemia), Managing Type 2 Diabetes Admission Data Admit Date/Time: 10/21/21 03:10 Attending Provider: Ana Morales Admit Provider: Barrett Kessler Primary Care Provider: Alejandro Monzon Other Providers: Barrett Kessler ; Eric Mensah ; Berhane Victor ; Hawk Henderson ; Fred Roa ; Дмитрий Clifford ; William Mak ; Aicha Whitman ; Bhargavi Soler ; Natalie Emmanuel ; Patrice Mireles ; Kim Landaverde Other Interventions: Discharge Summary Assessment (RN) Last Done: 10/22/21 13:23
== END 2021-10-22 13:40 | disposition home or self-care (01) ==
LOC: EDINP 00:24 → ED 00:24 → SUATTDRO 03:10 → 2E 04:00